=== PATIENT | female | born 1980 | race African-American/Black ===

== ENCOUNTER 2016-09-06 18:39 | Emergency (ER) | payer MEDICAID, OTHER ==
[~2016-09-06] VITALS: Ht 165.1 cm; Wt 86.0 kg
[~2016-09-06 18:39] MED LIST: MACR100C2 PO; ONDA4TAB7 SL; PREN29TA PO
[2016-09-06 18:40] VITALS: BP 133/82; PULSE 115; RESP 20; TEMP 98.7; O2SAT 96
[2016-09-06] MEDS ORDERED: RESP: ALBUTEROL 2.5 MG/3 ML NEB (SCH) INH ONE (23:15)
--- NOTE | 2016-09-06 23:45 | RADRPT ---
EXAM DATE/TIME: 09/06/2016 23:36 [facility] COMPARISON: No previous studies available for comparison. INDICATIONS : Short of breath and congestion for two days. MEDICAL HISTORY : None. SURGICAL HISTORY : None. ENCOUNTER: Initial ACUITY: 2 days PAIN SCORE: 2/10 LOCATION: Bilateral chest FINDINGS: Minimal streaky infiltrate at the medial lung bases identified. Cardiomegaly. Osseous structures are intact. CONCLUSION: Minimal basilar airspace disease suspected. Ronnie Jc MD on September 06, 2016 at 23:43 Board Certified Radiologist. This report was verified electronically.
[2016-09-07 00:12] LABS: AUTOMATED NEUTROPHIL # 8.5 TH/MM3 (1.8-7.7); BASOPHIL % 0.3 % (0.0-2.0); EOSINOPHIL # 0.3 TH/MM3 (0-0.4); EOSINOPHIL % 2.5 % (0.0-4.0); HEMATOCRIT 35.1 % (35.0-46.0); HEMO FLAGS DIFF FINAL; LYMPH % 10.9 % (9.0-44.0); LYMPHOCYTE # 1.2 TH/MM3 (1.0-4.8); MEAN CELL VOLUME 89.2 FL (80.0-100.0); MEAN CORPUSCULAR HEMOGLOBIN 30.9 PG (27.0-34.0); MEAN CORPUSCULAR HGB CONC 34.6 % (32.0-36.0); MONO % 8.1 % (0.0-8.0); NEUT % 78.2 % (16.0-70.0); PLATELET COUNT 287 TH/MM3 (150-450); RED BLOOD COUNT 3.93 MIL/MM3 (4.00-5.30); RED CELL DISTRIBUTION WIDTH 14.4 % (11.6-17.2); WHITE BLOOD COUNT 10.9 TH/MM3 (4.0-11.0)
[2016-09-07 00:25] LABS: ALT (GPT) 16 U/L (10-53); ANION GAP 12 MEQ/L (5-15); AST (GOT) 15 U/L (15-37); BLOOD UREA NITROGEN 3 MG/DL (7-18); CHLORIDE 104 MEQ/L (98-107); GLOMERULAR FILTRATION RATE 144 ML/MIN (>89); POTASSIUM 3.5 MEQ/L (3.5-5.1); SODIUM (NA) 138 MEQ/L (136-145)
[2016-09-07 00:29] LABS: ALKALINE PHOSPHATASE 64 U/L (45-117); TOTAL BILIRUBIN ADULT 0.4 MG/DL (0.2-1.0)
--- NOTE | 2016-09-07 00:31 | RADRPT ---
EXAM DATE/TIME: 09/06/2016 23:57 [facility] COMPARISON: No previous studies available for comparison. INDICATIONS : Bilateral leg swelling and cramping. Shortness of breath. MEDICAL HISTORY : . Ovarian cysts. Bilateral leg swelling and cramping. SOB. SURGICAL HISTORY : None. ENCOUNTER: Initial ACUITY: 1 day PAIN SCORE: 0/10 LOCATION: Bilateral leg. TECHNIQUE: Venous ultrasound of the left and right leg was performed from the inguinal ligament to the proximal calf. Real-time, color Doppler and spectral tracing, compression and augmentation techniques were us ed. FINDINGS: RIGHT LEG: There is normal compressibility of the deep venous system from the inguinal region to the proximal ca lf. No echogenic clot is seen in the lumen of the common femoral, femoral, popliteal, and posterior tibial veins. There is a normal response of the venous system to proximal and distal augmentation an d respiration. LEFT LEG: There is normal compressibility of the deep venous system from the inguinal region to the proximal ca lf. No echogenic clot is seen in the lumen of the common femoral, femoral, popliteal, and posterior tibial veins. There is a normal response of the venous system to proximal and distal augmentation an d respiration. CONCLUSION: Normal examination. Ronnie Jc MD on September 07, 2016 at 0:29 Board Certified Radiologist. This report was verified electronically.
[2016-09-07 01:08] VITALS: PULSE 113
[2016-09-07] MEDS ORDERED: AZIT250T3 PO (01:08)
--- NOTE | 2016-09-07 01:10 | PD ---
HPI Chief Complaint: Cold / Flu Symptoms Time Seen by Provider: 22:50 Travel History International Travel<30 days: No Contact w/Intl Traveler<30days: No Traveled to known affect area: No History of Present Illness HPI The patient is 36 years old. She is a 5 para 3 with 1 prior miscarriage known to be 6 months . She follows with bindery machine setter Cheyenne Jackman. Ultrasounds have been normal. She has had a cough for about a day and a half. She reports occasional episodes of severe coughing followed by abdominal pain. She reports some shortness of breath with exertion as well as dyspnea at rest. She's had severe coughing spells with posttussive emesis. She 's had yellow mucus production. Subjective fever is reported. Patient is otherwise healthy. No vaginal bleeding. No vaginal discharge. No urinary complaint. PFSH Past Medical History Medical History: Denies Significant Hx Tetanus Vaccination: > 5 Years Influenza Vaccination: No ?: LMP: 03/25/16 : 5 Para: 3 Miscarriage: 1 : 0 Ovarian Cysts: Yes Past Surgical History Surgical History: No Previous Surgery Social History Alcohol Use: No Tobacco Use: No Substance Use: No Allergies-Medications (Allergen,Severity, Reaction): Coded Allergies: No Known Allergies (Unverified , 09/06/16) Reported Meds & Prescriptions Reported Meds & Active Scripts Active Azithromycin 250 Mg Tab 250 Mg PO DAILY 4 Days Review of Systems Except as stated in HPI: all other systems reviewed are Neg General / Constitutional: Positive: Fever Respiratory: Positive: Cough, Shortness of Breath Physical Exam Narrative GENERAL: 36-year-old female pleasant well-nourished well-developed no acute distress SKIN: Warm and dry. HEAD: Atraumatic. Normocephalic. EYES: Pupils equal and round. No scleral icterus. No injection or drainage. ENT: No nasal bleeding or discharge. Mucous membranes pink and moist. NECK: Trachea midline. No JVD. CARDIOVASCULAR: Sinus. Tachycardia. RESPIRATORY: No accessory muscle use. Clear to auscultation. Breath sounds equal bilaterally. GASTROINTESTINAL: Abdomen soft, non-tender, nondistended. Hepatic and splenic margins not palpable. MUSCULOSKELETAL: No obvious deformities. No clubbing. No cyanosis. No edema. NEUROLOGICAL: Awake and alert. No obvious cranial nerve deficits. Motor grossly within normal limits. Normal speech. PSYCHIATRIC: Appropriate mood and affect; insight and judgment normal. Data Data Last Documented VS Vital Signs Date Time Temp Pulse Resp B/P Pulse Ox O2 Delivery O2 Flow Rate FiO2 09/07/16 01:37 113 18 155/71 100 09/06/16 22:51 Room Air 09/06/16 18:40 98.7 Vital signs reviewed Orders Complete Blood Count With Diff (09/06/16 23:14) Troponin I (09/06/16 23:14) Influenzae A/B Antigen (09/06/16 23:14) Chest, Single Ap (09/06/16 23:14) Albuterol Neb (Albuterol Neb) (09/06/16 23:15) Us Leg Venous Doppler Bilat (09/06/16 ) Comprehensive Metabolic Panel (09/06/16 23:14) Lipase (09/06/16 23:14) Lung Scan - Perfusion (09/07/16 23:14) Azithromycin (Zithromax) (09/07/16 01:15) Labs Laboratory Tests Test 09/06/16 23:59 White Blood Count 10.9 TH/MM3 Red Blood Count 3.93 MIL/MM3 Hemoglobin 12.1 GM/DL Hematocrit 35.1 % Mean Corpuscular Volume 89.2 FL Mean Corpuscular Hemoglobin 30.9 PG Mean Corpuscular Hemoglobin 34.6 % Concent Red Cell Distribution Width 14.4 % Platelet Count 287 TH/MM3 Mean Platelet Volume 10.0 FL Neutrophils (%) (Auto) 78.2 % Lymphocytes (%) (Auto) 10.9 % Monocytes (%) (Auto) 8.1 % Eosinophils (%) (Auto) 2.5 % Basophils (%) (Auto) 0.3 % Neutrophils # (Auto) 8.5 TH/MM3 Lymphocytes # (Auto) 1.2 TH/MM3 Monocytes # (Auto) 0.9 TH/MM3 Eosinophils # (Auto) 0.3 TH/MM3 Basophils # (Auto) 0.0 TH/MM3 CBC Comment DIFF FINAL Differential Comment Sodium Level 138 MEQ/L Potassium Level 3.5 MEQ/L Chloride Level 104 MEQ/L Carbon Dioxide Level 22.0 MEQ/L Anion Gap 12 MEQ/L Blood Urea Nitrogen 3 MG/DL Creatinine 0.57 MG/DL Estimat Glomerular Filtration 144 ML/MIN Rate Random Glucose 72 MG/DL Calcium Level 8.9 MG/DL Total Bilirubin 0.4 MG/DL Aspartate Amino Transf 15 U/L (AST/SGOT) Alanine Aminotransferase 16 U/L (ALT/SGPT) Alkaline Phosphatase 64 U/L Troponin I LESS THAN 0.02 NG/ML Total Protein 7.2 GM/DL Albumin 2.7 GM/DL Lipase 78 U/L MDM Medical Decision Making Medical Screen Exam Complete: Yes Emergency Medical Condition: Yes Medical Record Reviewed: Yes Differential Diagnosis Pneumonia, PE, asthma, hepatobiliary disease, vaginal bleeding, complications second trimester Narrative Course CBC & BMP Diagram 09/06/16 23:59 Troponin less than 0.02 Chest x-ray shows possible left base disease VQ scan is normal Blood type AB+ Obstetrics to perform heart tones Patient appears to have bibasal pna. Azithromycin prescribed. Return precautions discussed. Diagnosis Primary Impression: Intrauterine Additional Impression: Pneumonia Qualified Code: J18.1 - Pneumonia of left lower lobe due to infectious organism Referrals: [facility] 2 days Additional Instructions: You have a choice when it comes to health care, and we are glad that you chose [facility]. Hopefully, we have met your expectations on today's visit. You are welcome to return to [facility] at any time, as we are committed to meeting the health care needs of our community. Med/Other Pt SpecificInfo: Prescription(s) given Scripts Azithromycin 250 Mg [id number] Mg PO DAILY 4 Days Ref 0 Prov:Pelon Barajas MD 09/07/16 Disposition: DISCHARGE HOME Condition: Stable Pelon Barajas MD Sep 07, 2016 01:10
[2016-09-07] MEDS ORDERED: AZITHROMYCIN 250 MG TAB PO ONE (01:15)
[2016-09-07 01:37] VITALS: BP 155/71; PULSE 113; RESP 18; O2SAT 100
--- NOTE | 2016-09-07 02:09 | RADRPT ---
EXAM DATE/TIME: 09/07/2016 01:58 [facility] COMPARISON: US LEG BILATERAL VENOUS DOPPLER, September 06, 2016, 23:57. CHEST SINGLE AP, September 06, 2016, 23:36. INDICATIONS : Shortness of breath for one day. DOSE: 1.0 mCi Tc99m Labeled MAA IV MEDICAL HISTORY : . SURGICAL HISTORY : None. ENCOUNTER: Initial ACUITY: 1 day PAIN SCALE: 0/10 LOCATION: Bilateral chest TECHNIQUE: The patient was injected with MAA, and eight-view perfusion scan was performed. FINDINGS: PERFUSION: There is a homogenous pattern of radiotracer uptake throughout both lungs. CONCLUSION: Normal examination. Ronnie Jc MD on September 07, 2016 at 2:08 Board Certified Radiologist. This report was verified electronically.
[2016-09-07 03:28] VITALS: BP 134/67; PULSE 105; RESP 18; TEMP 98.4; O2SAT 100
== END 2016-09-07 03:42 | disposition home or self-care (01) ==
LOC: NEPE 18:39
DX: O99.513 Diseases of the respiratory system complicating pregnancy, third trimester (principal); Z3A.00 Weeks of gestation of pregnancy not specified
CPT/HCPCS: 71010; 78580; 80053; 83690; 84484; 85025; 87804; 93970; 94664; 99284; A9540; J7613

== ENCOUNTER 2016-11-01 14:45 | Inpatient (IN) | payer MEDICAID ==
[~2016-11-01] VITALS: Ht 165.1 cm; Wt 87.5 kg
[2016-11-01] VITALS (35 sets, daily range): BP systolic 108–144; BP diastolic 40–87; PULSE 44–97; RESP 16–22; TEMP 98.4–98.7; O2SAT 98–100
[~2016-11-01 14:45] MED LIST changes: +AZIT250T3 PO; -MACR100C2 PO; -ONDA4TAB7 SL; -PREN29TA PO
--- NOTE | 2016-11-01 15:35 | PD ---
Physical Exam Date Seen by Provider: November 01, 2016 Time Seen by Provider: 15:30 Narrative 36 y/o female with C/O KEBEDE for 2-3 days with worsening today. Pain 8/10 today. No Hx. Migraine. Patient 31 weeks . No abdominal pain and feels movement. Denies Fever, Chills, Sore throat or Cough. No Nausea or vomiting. V/S stable Patient sent to OB Floor. Data Data Last Documented VS Vital Signs Date Time Temp Pulse Resp B/P Pulse Ox O2 Delivery O2 Flow Rate FiO2 11/01/16 14:47 98.6 75 16 133/78 100 Room Air [facility] Medical Record Reviewed: Yes Supervised Visit with NALLELY: Yes Condition: Stable Addy Garcia November 01, 2016 15:35
[2016-11-01] MEDS ORDERED: ACETAMINOPHEN 325 MG TAB PO ONE (16:45)
[2016-11-01 17:35] LABS: BACTERIA, URINE FEW /hpf; BLOOD, URINE NEG (NEG); COMMENT (UR) CULT NOT INDICATED; CULTURE IF INDICATED CULT NOT INDICATED; GLUCOSE,URINE NEG (NEG); KETONE, URINE TRACE mg/dL (NEG); MUCUS URINE FEW /lpf (OCC); NITRITE,URINE NEG (NEG); SQUAMOUS EPITHELIAL CELL URINE 3 /hpf (0-5); URINE COLOR YELLOW (YELLW/STRAW)
--- NOTE | 2016-11-01 18:39 | PD ---
HPI Chief Complaint headache and abdominal pain Date Seen: November 01, 2016 Travel History International Travel<30 Days: No Contact w/Intl Traveler<30Days: No Known Affected Area: No History of Present Illness HPI This is a 36y/o at 31w5d who presented to the [facility] with reports of a recent onset of headache and abdominal pain. She was noted to have an elevated respiratory rate and thus was placed on a pulse ox. Her pulse was irregular with EKG significant for PVCs. Pt denies vaginal bleeding or leakage of fluid with reports of active movements. care with Cheyenne Redd, care complicated by: 1. AMA 2. h/o pneumonia during this Para: 3 : 5 Miscarriage: 1 History Past Medical History Medical History: Denies Significant Hx Past Surgical History Surgical History: No Previous Surgery Family History Narrative Family History Pt's mother with cardiac issues, needs 2 valve replacement Family History: Social History Alcohol Use: No Tobacco Use: No Substance Abuse: No Allergies-Medications (Allergen,Severity, Reaction): Coded Allergies: No Known Allergies (Unverified , 11/01/16) Home Meds Active Scripts Azithromycin 250 Mg [id number] Mg PO DAILY 4 Days Ref 0 Prov:Pelon Barajas MD 09/07/16 Review of Systems Except as stated in HPI: all other systems reviewed are Neg Physical Exam Vital Signs Date Time Temp Pulse Resp B/P Pulse Ox O2 Delivery O2 Flow Rate FiO2 11/01/16 18:24 20 11/01/16 18:19 83 11/01/16 18:10 64 11/01/16 18:05 59 11/01/16 18:01 51 142/69 11/01/16 18:00 48 11/01/16 17:52 20 11/01/16 17:50 70 11/01/16 17:46 86 126/72 11/01/16 17:45 44 11/01/16 17:42 59 142/86 11/01/16 17:40 47 11/01/16 17:31 68 139/40 11/01/16 17:30 48 11/01/16 17:21 20 11/01/16 17:16 22 11/01/16 17:15 85 11/01/16 17:15 64 144/87 11/01/16 17:01 50 126/66 11/01/16 16:46 80 123/70 11/01/16 16:33 50 108/84 11/01/16 14:47 98.6 75 16 133/78 100 Room Air Narrative GENERAL: Well-nourished, well-developed patient. SKIN: Warm and dry. HEAD: Normocephalic and atraumatic. EYES: No scleral icterus. No injection or drainage. ENT: No nasal drainage noted. Mucous membranes pink. Airway patent. NECK: Supple, trachea midline. No JVD. CARDIOVASCULAR: Regular rate and rhythm without murmurs, gallops, or rubs. RESPIRATORY: Breath sounds equal bilaterally. No accessory muscle use. BREASTS: Bilateral exam showed no masses , no retractions, no nipple discharge. ABDOMEN/GI: Abdomen soft, non-tender, bowel sounds present, no rebound, no guarding Fundal Height: 31w GENITOURINARY: deferred FHT's: Category: 1 Contractions: None EXTREMITIES: No cyanosis or edema. BACK: Nontender without obvious deformity. No CVA tenderness. NEUROLOGICAL: Awake and alert. Motor and sensory grossly within normal limits. Five out of 5 muscle strength in all muscle groups. Normal speech. Data Data Vital Signs Reviewed: Yes Orders Vital Signs (Adult) .ON ADMISSION (11/01/16 16:32) ^ Labor Status (11/01/16 16:32) Urinalysis - C+S If Indicated (11/01/16 16:32) Acetaminophen (Tylenol) (11/01/16 16:45) Electrocardiogram (11/01/16 ) Senior Geologist / Telemetry [email or web address] (11/01/16 18:02) Electrocardiogram (11/01/16 18:06) Ob (2e) Additional Admit Info (11/01/16 18:22) Labs Laboratory Tests Test 11/01/16 16:00 Urine Color YELLOW Urine Turbidity HAZY Urine pH 6.0 Urine Specific [place] 1.019 Urine Protein TRACE Urine Glucose (UA) NEG Urine Ketones TRACE Urine Occult Blood NEG Urine Nitrite NEG Urine Bilirubin NEG Urine Urobilinogen LESS THAN 2.0 Urine Leukocyte Esterase SMALL Urine RBC 2 Urine WBC 4 Urine Squamous Epithelial 3 Cells Urine Bacteria FEW Urine Mucus FEW Microscopic Urinalysis Comment CULT NOT INDICATED MDM Medical Record Reviewed: Yes Interpretation(s) 36y/o at 31w5d with PVCs on EKG. -reassuring status -no evidence of PTL Plan Admit for cardiology workup EKG obtained Cardiology consult in AM Telemetry overnight Diagnosis Diagnosis: Primary Impression: PVC (premature ventricular contraction) Additional Impressions: 31 weeks gestation of Advanced maternal age in multigravida Qualified Code: O09.523 - Advanced maternal age in multigravida, third trimester Condition: Stable Jocelynn Koo MD November 01, 2016 18:39
--- NOTE | 2016-11-01 18:56 | HHI.HP ---
HPI Travel History International Travel<30 Days: No Contact w/Intl Traveler<30Days: No Known Affected Area: No History of Present Illness HPI This is a 36y/o at 31w5d who presented to the [facility] with reports of a recent onset of headache and abdominal pain. She was noted to have an elevated respiratory rate and thus was placed on a pulse ox. Her pulse was irregular with EKG significant for PVCs. Pt denies vaginal bleeding or leakage of fluid with reports of active movements. care with Cheyenne Redd, care complicated by: 1. AMA 2. h/o pneumonia during this Para: 3 : 5 History Past Medical History Medical History: Denies Significant Hx Obstetric History Obstetric History 10/12/98 FT Male 8 1/2 lbs 05/09/99 FT Female 8 1/2 lbs 05/25/07 FT Male 6 1/2 lbs Past Surgical History Surgical History: No Previous Surgery Family History Narrative Family History Pt's mother with cardiac issues, needs 2 valve replacement Family History: Social History Alcohol Use: No Tobacco Use: No Substance Abuse: No Allergies-Medications (Allergen,Severity, Reaction): Coded Allergies: No Known Allergies (Unverified , 11/01/16) Home Meds Active Scripts Azithromycin 250 Mg [id number] Mg PO DAILY 4 Days Ref 0 Prov:Pelon Barajas MD 09/07/16 Review of Systems Except as stated in HPI: all other systems reviewed are Neg Physical Exam Vital Signs Date Time Temp Pulse Resp B/P Pulse Ox O2 Delivery O2 Flow Rate FiO2 11/01/16 18:35 57 11/01/16 18:30 49 11/01/16 18:25 50 11/01/16 18:25 48 130/63 11/01/16 18:24 20 11/01/16 18:19 83 11/01/16 18:10 64 11/01/16 18:05 59 11/01/16 18:01 51 142/69 11/01/16 18:00 48 11/01/16 17:52 20 11/01/16 17:50 70 11/01/16 17:46 86 126/72 11/01/16 17:45 44 11/01/16 17:42 59 142/86 11/01/16 17:40 47 11/01/16 17:31 68 139/40 11/01/16 17:30 48 11/01/16 17:21 20 11/01/16 17:16 22 11/01/16 17:15 85 11/01/16 17:15 64 144/87 11/01/16 17:01 50 126/66 11/01/16 16:46 80 123/70 11/01/16 16:33 50 108/84 11/01/16 14:47 98.6 75 16 133/78 100 Room Air Narrative GENERAL: Well-nourished, well-developed patient. SKIN: Warm and dry. HEAD: Normocephalic and atraumatic. EYES: No scleral icterus. No injection or drainage. ENT: No nasal drainage noted. Mucous membranes pink. Airway patent. NECK: Supple, trachea midline. No JVD. CARDIOVASCULAR: Regular rate and rhythm without murmurs, gallops, or rubs. RESPIRATORY: Breath sounds equal bilaterally. No accessory muscle use. BREASTS: Bilateral exam showed no masses , no retractions, no nipple discharge. ABDOMEN/GI: Abdomen soft, non-tender, bowel sounds present, no rebound, no guarding Fundal Height: 31w GENITOURINARY: deferred FHT's: Category: 1 Contractions: None EXTREMITIES: No cyanosis or edema. BACK: Nontender without obvious deformity. No CVA tenderness. NEUROLOGICAL: Awake and alert. Motor and sensory grossly within normal limits. Five out of 5 muscle strength in all muscle groups. Normal speech. Data Data Vital Signs Reviewed: Yes Orders Vital Signs (Adult) .ON ADMISSION (11/01/16 16:32) ^ Labor Status (11/01/16 16:32) Urinalysis - C+S If Indicated (11/01/16 16:32) Acetaminophen (Tylenol) (11/01/16 16:45) Application Developer / Telemetry [email or web address] (11/01/16 18:02) Electrocardiogram (11/01/16 18:06) Ob (2e) Additional Admit Info (11/01/16 18:22) Labs Laboratory Tests Test 11/01/16 16:00 Urine Color YELLOW Urine Turbidity HAZY Urine pH 6.0 Urine Specific [place] 1.019 Urine Protein TRACE Urine Glucose (UA) NEG Urine Ketones TRACE Urine Occult Blood NEG Urine Nitrite NEG Urine Bilirubin NEG Urine Urobilinogen LESS THAN 2.0 Urine Leukocyte Esterase SMALL Urine RBC 2 Urine WBC 4 Urine Squamous Epithelial 3 Cells Urine Bacteria FEW Urine Mucus FEW Microscopic Urinalysis Comment CULT NOT INDICATED Assessment/Plan Assessment and Plan 36y/o at 31w5d with PVCs on EKG. -reassuring status -no evidence of PTL Plan Admit for cardiology workup EKG obtained Cardiology consult in AM Telemetry overnight Jocelynn Koo MD November 01, 2016 18:56
[2016-11-01] MEDS ORDERED: ACETAMINOPHEN 325 MG TAB PO PRN (19:00)
[2016-11-01] MEDS ORDERED: SODIUM CHLORIDE 0.9% FLUSH 10 ML FLUSH IV FLUSH PRN (19:00)
[2016-11-01] MEDS ORDERED: ZOLPIDEM TARTRATE 5 MG TAB PO PRN (19:00)
[2016-11-01] MEDS: SODIUM CHLORIDE 0.9% FLUSH 10 ML FLUSH IV FLUSH SCH (21:00)
[2016-11-02 00:20] VITALS: BP 122/60; PULSE 69; RESP 20; TEMP 98.4; O2SAT 98
[2016-11-02 05:13] VITALS: BP 140/79; PULSE 50; RESP 18; TEMP 97.7; O2SAT 98
[2016-11-02 08:00] VITALS: BP 128/70; PULSE 70; RESP 20; TEMP 98; O2SAT 97
[2016-11-02] MEDS: SODIUM CHLORIDE 0.9% FLUSH 10 ML FLUSH IV FLUSH SCH (08:43)
--- NOTE | 2016-11-02 08:49 | MB ---
cc: DAVID NUNEZ MD DATE OF CONSULTATION 11/02/2016 REASON FOR CONSULTATION PVCs. HISTORY OF PRESENT ILLNESS Ms. Boo is a 36-year-old female who has unremarkable cardiac history. She is 31 weeks and presented to the emergency room with complaints of a headache. PAST MEDICAL HISTORY - The patient denies any history of hypertension, hyperlipidemia, or diabetes. She does have a history of pneumonia. FAMILY HISTORY Positive for valvular heart disease. SOCIAL HISTORY The patient does not drink or smoke. ALLERGIES No known drug allergies. OUTPATIENT MEDICATIONS Included Zithromax. REVIEW OF SYSTEMS Except as mentioned in the HPI, all 12 systems are negative. PHYSICAL EXAMINATION VITAL SIGNS: On physical examination vital signs are 97.7, 50, 18, 140/79. IN GENERAL: She is an overweight female who is in no apparent distress. NECK: Her neck is free from JVD. LUNGS: The lungs are bilaterally clear to auscultation. CARDIOVASCULAR EXAMINATION: She has a normal S1 and S2. I did not appreciate any murmurs, rubs or gallops. ABDOMEN: Soft. EXTREMITIES Free from edema. TELEMETRY sinus rhythm with occasional PVCs. EKG Normal sinus rhythm with PVCs. IMPRESSIONS PVCs - The patient has had some PVCs. She has been monitored overnight on telemetry and has not had any runs. They appear only occasional on telemetry. At this point basic labs with electrolyte panel will be checked as well as a TSH. Barring any electrolyte disturbances, she can be continued with conservative medical management. I would not give any beta blockers given her and low heart rate into the 50s. Family history of valvular heart disease - Outpatient echocardiogram can be considered by the primary team. DISPOSITION - It is reasonable for the patient to be discharged home pending her labs. I will be available on a p.r.n. basis. Sincerely, David Nunez M.D. JHONY/LIZZY /8:16 AM /8:35 AM
--- NOTE | 2016-11-02 09:14 | PD.OB.ANTE ---
Subjective Interval History Pt seen and examined this morning. No acute events overnight. Pt with HR ranging from 40s-100s. BP stable. Pt reports occasionally feeling light headed when she stands up quickly. Denies current headache, chest pain, SOB. Endorses occasional palpitations. Denies any syncopal episodes. She denies history of cardiac issues, blppd disorders. She has not recently been seen by a doctor. , gestational age 31/6, care is with Cheyenne Jackman. She endorses movement, denies leakage of fluid, vaginal bleeding, abdominal pain, contractions. Objective Vital Signs Vital Signs Date Time Temp Pulse Resp B/P Pulse Ox O2 Delivery O2 Flow Rate FiO2 11/02/16 05:13 97.7 50 18 140/79 98 11/02/16 01:25 Room Air 11/02/16 00:20 98.4 69 20 122/60 98 11/01/16 22:22 97 11/01/16 22:00 98.4 70 20 136/81 98 11/01/16 21:15 20 11/01/16 20:15 63 20 11/01/16 20:10 50 11/01/16 19:15 98.7 11/01/16 19:10 50 11/01/16 18:55 50 11/01/16 18:50 55 11/01/16 18:45 49 11/01/16 18:40 61 11/01/16 18:35 57 11/01/16 18:30 49 11/01/16 18:25 50 11/01/16 18:25 48 130/63 11/01/16 18:24 20 11/01/16 18:19 83 11/01/16 18:10 64 11/01/16 18:05 59 11/01/16 18:01 51 142/69 11/01/16 18:00 48 11/01/16 17:52 20 11/01/16 17:50 70 11/01/16 17:46 86 126/72 11/01/16 17:45 44 11/01/16 17:42 59 142/86 11/01/16 17:40 47 11/01/16 17:31 68 139/40 11/01/16 17:30 48 11/01/16 17:21 20 11/01/16 17:16 22 11/01/16 17:15 85 11/01/16 17:15 64 144/87 11/01/16 17:01 50 126/66 11/01/16 16:46 80 123/70 11/01/16 16:33 50 108/84 11/01/16 14:47 98.6 75 16 133/78 100 Room Air Lab & Micro Results Test 11/01/16 16:00 Urine Color YELLOW Urine Turbidity HAZY Urine pH 6.0 Urine Specific [place] 1.019 Urine Protein TRACE mg/dL Urine Glucose (UA) NEG mg/dL Urine Ketones TRACE mg/dL Urine Occult Blood NEG Urine Nitrite NEG Urine Bilirubin NEG Urine Urobilinogen LESS THAN 2.0 MG/DL Urine Leukocyte Esterase SMALL Urine RBC 2 /hpf Urine WBC 4 /hpf Urine Squamous Epithelial 3 /hpf Cells Urine Bacteria FEW /hpf Urine Mucus FEW /lpf Microscopic Urinalysis Comment CULT NOT INDICATED Physical Exam GENERAL: Well-nourished, well-developed patient. CARDIOVASCULAR: Regular rate and rhythm without murmurs, gallops, or rubs. RESPIRATORY: Breath sounds equal bilaterally. No accessory muscle use. ABDOMEN/GI: Abdomen soft, non-tender, +bowel sounds. Gravid to 31 weeks FHT's: Appreciated with Doppler EXTREMITIES: No cyanosis or edema, non-tender, without signs of DVT. Assessment and Plan Assessment and Plan 36y/o at 31w5d with significant family history for heart disease found to have an abnormal EKG. -Cardiology consulted due to irregular EKG, appreciate recommendations -Positive FHT using Doppler at bedside -Check FHT Q Shift -Consider NST -No evidence of PTL -Telemetry -Continue to monitor vitals -Case management consulted to assist as pt is uninsured Tarik Escobar MD R2 November 02, 2016 09:14 Telemetry overnight Tarik Escobar MD R2 November 02, 2016 09:14
[2016-11-02 09:41] LABS: HEMATOCRIT 32.7 % (35.0-46.0); MEAN CELL VOLUME 88.3 FL (80.0-100.0); MEAN CORPUSCULAR HEMOGLOBIN 28.7 PG (27.0-34.0); MEAN CORPUSCULAR HGB CONC 32.5 % (32.0-36.0); PLATELET COUNT 301 TH/MM3 (150-450); RED BLOOD COUNT 3.71 MIL/MM3 (4.00-5.30); RED CELL DISTRIBUTION WIDTH 14.7 % (11.6-17.2); REVIEW FLAG FINAL; WHITE BLOOD COUNT 8.4 TH/MM3 (4.0-11.0)
[2016-11-02 10:12] LABS: ALKALINE PHOSPHATASE 112 U/L (45-117); ALT (GPT) 10 U/L (10-53); ANION GAP 9 MEQ/L (5-15); AST (GOT) 12 U/L (15-37); BICARBONATE 24.7 MEQ/L (21.0-32.0); BLOOD UREA NITROGEN 3 MG/DL (7-18); CHLORIDE 106 MEQ/L (98-107); GLOMERULAR FILTRATION RATE 164 ML/MIN (>89); MAGNESIUM 1.6 MG/DL (1.5-2.5); POTASSIUM 3.7 MEQ/L (3.5-5.1); SODIUM (NA) 140 MEQ/L (136-145); TOTAL BILIRUBIN ADULT 0.3 MG/DL (0.2-1.0)
--- NOTE | 2016-11-02 14:34 | EKG ---
Date Performed: 11/01/2016 Time Performed: 18:21:38 PTAGE: 36 years EKG: Sinus rhythm WITH FREQUENT VENTRICULAR PREMATURE COMPLEXES POSSIBLE LEFT ATRIAL ENLARGEMENT NONSPECIFIC T-WAVE AB NORMALITY ABNORMAL RHYTHM ECG NO PREVIOUS TRACING DOCTOR: Arthur Bhatia Interpretating Date/Time 11/02/2016 14:33:26
[2016-11-02 16:00] VITALS: BP 119/55; PULSE 93; RESP 20; TEMP 98.4; O2SAT 97
[2016-11-02] MEDS ORDERED: CALNTAB PO (17:16)
--- NOTE | 2016-11-02 17:17 | HHI.DCPOC ---
Discharge Care Plan Diagnosis: (1) PVC (premature ventricular contraction) Goals to Promote Your Health * To prevent worsening of your condition and complications, please continue to eat a well balanced diet and stay well hydrated by drinking plenty of water. * To maintain your health at the optimal level, please follow up with a doctor. Directions to Meet Your Goals Take your medications as prescribed Follow your dietary instruction Follow activity as directed Keep your appointments as scheduled Take your immunizations and boosters as scheduled If your symptoms worsen call your PCP, if no PCP go to Urgent Care Center or Emergency Room Smoking is Dangerous to Your Health. Avoid second hand smoke Call the 24-hour hour crisis hotline for domestic abuse at Alfredo Baldwin MD R1 November 02, 2016 17:17
--- NOTE | 2016-11-02 19:00 | EC ---
Study Study Date:11/02/2016 STUDY CONCLUSIONS SUMMARY LEFT VENTRICLE: The cavity size was normal. Wall thickness was normal. Systolic function was normal. The estimated ejection fraction was in the range of 55% to 60%. Wall motion was normal; there were no regional wall motion abnormalities. If LV function is below 40, please consider prescribing an ACEI or ARB or document rationale for non-use. PROCEDURE DATA STUDY STATUS: Elective. Procedure: Transthoracic echocardiography. Image quality was good. Scanning was performed from the parasternal, apical, and subcostal acoustic windows. Study completion: The patient tolerated the procedure well. Transthoracic echocardiography. M-mode, complete 2D, complete spectral Doppler, and color Doppler. Patient status: Inpatient. CARDIAC ANATOMY LEFT VENTRICLE: The cavity size was normal. Wall thickness was normal. Systolic function was normal. The estimated ejection fraction was in the range of 55% to 60%. Wall motion was normal; there were no regional wall motion abnormalities. AORTIC VALVE: Trileaflet; normal thickness leaflets. Doppler: Transvalvular velocity was within the normal range. There was no stenosis. No regurgitation. Peak gradient: 20mm Hg (S). AORTA: Aortic root: The aortic root was normal in size. MITRAL VALVE: Structurally normal valve. Doppler: Transvalvular velocity was within the normal range. There was no evidence for stenosis. No regurgitation. Peak gradient: 3mm Hg (D). LEFT ATRIUM: The atrium was normal in size. RIGHT VENTRICLE: The cavity size was normal. Wall thickness was normal. PULMONIC VALVE: Doppler: Transvalvular velocity was within the normal range. There was no evidence for stenosis. No regurgitation. TRICUSPID VALVE: Structurally normal valve. Doppler: Transvalvular velocity was within the normal range. No regurgitation. PULMONARY ARTERY: The main pulmonary artery was normal-sized. Systolic pressure was within the normal range. RIGHT ATRIUM: The atrium was normal in size. PERICARDIUM: There was no pericardial effusion. SYSTEMIC VEINS: Inferior vena cava: The vessel was normal in size. BASIC MEASUREMENTS ADULT Normal Left ventricle LV internal dimension, ED, chordal level, *52.4 mm 43-52 PLAX LV internal dimension, ES, chordal level, *40 mm 23-38 PLAX Fractional shortening, chordal level, PLAX *24 % >29 LV posterior wall thickness, ED 7.72 mm IVS/LVPW ratio, ED 1.26 <1.3 Ventricular septum Septal thickness, ED 9.71 mm Aortic valve Leaflet separation 21 mm 15-26 Left atrium Anterior-posterior dimension 34 mm Right ventricle RV internal dimension, ED, PLAX 20 mm 19-38 BASIC MEASUREMENTS ADULT Normal Aortic valve Leaflet separation 21 mm 15-26 Aorta Root diameter, ED 26 mm 20-37 DOPPLER MEASUREMENTS ADULT Normal Main pulmonary artery Pressure, S 29 mm Hg =30 Aortic valve Peak velocity, S 223 cm/s Peak gradient, S 20 mm Hg Mitral valve Peak E-wave velocity 86.9 cm/s Peak A-wave velocity 56.3 cm/s Peak gradient, D 3 mm Hg Peak E/A ratio 1.5 Tricuspid valve Regurgitant peak velocity 243 cm/s Peak RV-RA gradient, S 24 mm Hg Maximal regurgitant velocity 243 cm/s Systemic veins Estimated CVP 5 mm Hg Right ventricle RV pressure, S 29 mm Hg <30 Pulmonic valve Acceleration time 113 ms LEGEND: Mean values are shown as u=mean value. Asterisk (*) tejada values outside specified normal range. Prepared and signed by Penelope Mccabe [id number]
== END 2016-11-02 18:45 | disposition home or self-care (01) | DRG 781 ==
LOC: NED 14:45 → H2EB 18:23 → N04B 21:39
PROVIDERS: ADMIT Obstetrics & Gynecology; ATTEND Obstetrics & Gynecology
DX: O99.413 Diseases of the circulatory system complicating pregnancy, third trimester (principal); O26.893 Other specified pregnancy related conditions, third trimester; I49.3 Ventricular premature depolarization; Z3A.31 31 weeks gestation of pregnancy; R51 Headache
CPT/HCPCS: 80053; 81001; 83735; 84100; 84443; 85027; 93005; 93306; 99285

== ENCOUNTER 2016-11-30 14:13 | Emergency (ER) | payer MEDICAID ==
[~2016-11-30 14:13] MED LIST changes: +CALNTAB PO
[2016-11-30 14:31] VITALS: BP 120/76; PULSE 78
--- NOTE | 2016-11-30 14:44 | PD ---
HPI Chief Complaint Elevated blood pressure. Date Seen: Nov 30, 2016 (Stephanie Martins MD R2) Travel History International Travel<30 Days: No Contact w/Intl Traveler<30Days: No (Stephanie Martins MD R2) History of Present Illness HPI Patient is a 36 year old at 35-6/7 weeks gestation who presents today for elevated blood pressure. She was being seen for routine care at [facility] today when she was found to have elevated BP of 140/100. She denies any headache, abdominal pain, blurry vision or visual changes. She does have some pedal edema today that is new. She denies any vaginal bleeding, vaginal discharge, gush or leaking of fluid, or contractions. Positive movement. (Stephanie Martins MD R2) History Past Medical History Medical History: Denies Significant Hx (Stephanie Martins MD R2) Obstetric History Obstetric History x 3 at full term 1 spontaneous at 12 weeks gestation (Stephanie Martins MD R2) Past Surgical History Surgical History: No Previous Surgery (Stephanie Martins MD R2) Family History Family History: Negative (Stephanie Martins MD R2) Social History Alcohol Use: No Tobacco Use: No Substance Abuse: No (Stephanie Martins MD R2) Allergies-Medications (Allergen,Severity, Reaction): Coded Allergies: No Known Allergies (Unverified , 11/01/16) Home Meds Active Scripts Ferrous Sulfate DR 324 Mg [id number] Mg PO TID #90 TAB Ref 0 Prov:Stephanie Martins MD R2 11/30/16 Vitamin (Calna)1 Tab Tab1 Tab PO DAILY #30 Ref 11 Prov:Alfredo Baldwin MD R1 11/02/16 Azithromycin 250 Mg [id number] Mg PO DAILY 4 Days Ref 0 Prov:Pelon Barajas MD 09/07/16 Review of Systems Except as stated in HPI: all other systems reviewed are Neg General / Constitutional: No: Fever, Chills Eyes: No: Blurred Vision, Visual changes HENT: No: Headaches Cardiovascular: No: Chest Pain or Discomfort, Palpitations Respiratory: No: Short of Breath Gastrointestinal: No: Abdominal Pain Genitourinary: Pelvic Pain, No: Dysuria, Discharge, Vaginal Bleeding Musculoskeletal: Edema Psychiatric: No: Substance Abuse (Stephanie Martins MD R2) Physical Exam Narrative GENERAL: Well-nourished, well-developed patient. SKIN: Warm and dry. HEAD: Normocephalic and atraumatic. EYES: No scleral icterus. No injection or drainage. ENT: No nasal drainage noted. Mucous membranes pink. Airway patent. NECK: Supple, trachea midline. No JVD. CARDIOVASCULAR: Regular rate and rhythm without murmurs, gallops, or rubs. RESPIRATORY: Breath sounds equal bilaterally. No accessory muscle use. ABDOMEN/GI: Abdomen soft, non-tender, bowel sounds present, no rebound, no guarding Gravid to 36 weeks size GENITOURINARY: Membranes: intact Uterine Contractions: none FHT's: Category: I Baseline: 145 Reactive: + Variability: moderate Decels: none EXTREMITIES: No cyanosis or edema. BACK: Nontender without obvious deformity. No CVA tenderness. NEUROLOGICAL: Awake and alert. Motor and sensory grossly within normal limits. Normal speech. (Stephanie Martins MD R2) Data Data Vital Signs Reviewed: Yes (Stephanie Martins MD R2) MDM Medical Record Reviewed: Yes Narrative Course / MDM 36 at 35-6/7 weeks gestation. 1. IUP- Category I tracing, reassuring. 2. Elevated BP- 140/100 in outpatient office, BP's here are 120/76 then 141/83. Will obtain CBC, CMP, uric acid, LDH, and UA for further evaluation. Patient will need 24 hour urine protein. eb Jacobs Addendum: UA, uric acid, LDH and CMP wnl CBC significant for anemia with hgb 10.5- will treat with ferrous sulfate 325mg PO TID Order given for 24 hour urine protein as outpatient Follow-up with [facility] Jackman (Stephanie Martins MD R2) Diagnosis Diagnosis: Primary Impression: Elevated blood pressure affecting in third trimester, antepartum Additional Impression: 35 weeks gestation of Disposition: DISCHARGE HOME Condition: Stable Scripts Ferrous Sulfate DR 324 Mg [id number] Mg PO TID #90 TAB Ref 0 Prov:Stephanie Martins MD R2 11/30/16 Patient Instructions: 24 Hour Urine Collection (GEN), General Instructions Attestation Patient seen at the bedside. Agree with resident's assessment/plan. Pre Eclampsia precautions given. (Stella Jacobs MD) Stephanie Martins MD R2 Nov 30, 2016 14:43 Stella Jacobs MD Nov 30, 2016 17:23
[2016-11-30 14:45] VITALS: RESP 18
[2016-11-30 14:51] VITALS: BP 141/83; PULSE 95
[2016-11-30 15:01] VITALS: BP 134/87; PULSE 78
[2016-11-30 15:55] LABS: HEMATOCRIT 32.4 % (35.0-46.0); MEAN CELL VOLUME 87.4 FL (80.0-100.0); MEAN CORPUSCULAR HEMOGLOBIN 28.3 PG (27.0-34.0); MEAN CORPUSCULAR HGB CONC 32.4 % (32.0-36.0); PLATELET COUNT 285 TH/MM3 (150-450); RED CELL DISTRIBUTION WIDTH 14.9 % (11.6-17.2); REVIEW FLAG FINAL; WHITE BLOOD COUNT 7.7 TH/MM3 (4.0-11.0)
[2016-11-30 16:28] LABS: BACTERIA, URINE RARE /hpf; BLOOD, URINE NEG (NEG); GLUCOSE,URINE NEG (NEG); KETONE, URINE 10 mg/dL (NEG); MUCUS URINE FEW /lpf (OCC); NITRITE,URINE NEG (NEG); SQUAMOUS EPITHELIAL CELL URINE 4 /hpf (0-5); URINE COLOR YELLOW (YELLW/STRAW)
[2016-11-30 16:28] LABS: ALT (GPT) 11 U/L (10-53); ANION GAP 9 MEQ/L (5-15); AST (GOT) 11 U/L (15-37); BICARBONATE 22.6 MEQ/L (21.0-32.0); BLOOD UREA NITROGEN 4 MG/DL (7-18); CHLORIDE 108 MEQ/L (98-107); GLOMERULAR FILTRATION RATE 139 ML/MIN (>89); LDH SERUM 158 U/L (84-246); POTASSIUM 4.3 MEQ/L (3.5-5.1); SODIUM (NA) 140 MEQ/L (136-145); URIC ACID 4.1 MG/DL (2.6-6.0)
[2016-11-30 16:30] LABS: ALKALINE PHOSPHATASE 168 U/L (45-117); TOTAL BILIRUBIN ADULT 0.3 MG/DL (0.2-1.0)
[2016-11-30 16:31] LABS: COMMENT (UR) CULT NOT INDICATED; CULTURE IF INDICATED CULT NOT INDICATED
[2016-11-30] MEDS ORDERED: FERR324T4 PO (16:35)
== END 2016-11-30 17:17 | disposition home or self-care (01) ==
LOC: HOBED 14:13
DX: O26.893 Other specified pregnancy related conditions, third trimester (principal); R03.0 Elevated blood-pressure reading, without diagnosis of hypertension; Z3A.35 35 weeks gestation of pregnancy
CPT/HCPCS: 59025; 80053; 81001; 83615; 84550; 85027

== ENCOUNTER → 2016-12-02 | Outpatient (CLI) | payer SELFPAY ==
[~2016-12-02] MED LIST changes: +FERR324T4 PO; +IBUP-232 PO
[2016-12-02 13:56] LABS: URINE TOTAL PROTEIN TIMED 8.9 MG/DL
== END ==
LOC: CLAB 13:06
PROVIDERS: ATTEND Family Medicine
DX: O13.3 Gestational [pregnancy-induced] hypertension without significant proteinuria, third trimester (principal)
CPT/HCPCS: 84157

== ENCOUNTER 2016-12-19 01:43 | Inpatient (IN) | payer MEDICAID ==
[2016-12-19] VITALS (53 sets, daily range): BP systolic 119–207; BP diastolic 66–162; PULSE 77–130; RESP 18–22; TEMP 97.7–98.9
[~2016-12-19] VITALS: Ht 165.1 cm; Wt 89.4 kg
[~2016-12-19 01:43] MED LIST changes: -IBUP-232 PO
[2016-12-19] MEDS ORDERED: LACTATED RINGER'S 1000 ML INJ 1,000 ML IV SCH (02:04)
[2016-12-19] MEDS ORDERED: LACTATED RINGER'S 1000 ML INJ 1,000 ML IV PRN (02:04)
[2016-12-19] MEDS ORDERED: PENICILLIN G POTASSIUM INJ 5,000,000 UNITS in SODIUM CHLORIDE 0.9% INJ 100 ML IV ONE (02:15)
[2016-12-19] MEDS ORDERED: SODIUM CHLORID 0.9% 500 ML INJ 500 ML IV PRN (02:15)
[2016-12-19] MEDS ORDERED: LIDOCAINE HCL 1% 50 ML VIAL I-DERMAL PRN (02:15)
[2016-12-19] MEDS ORDERED: MINERAL OIL 10 ML VIAL TOPICAL PRN (02:15)
[2016-12-19] MEDS ORDERED: LIDOCAINE HCL 1% 50 ML VIAL INFIL PRN (02:15)
[2016-12-19] MEDS ORDERED: NIFEdipine 10 MG CAP PO PRN ×6 (02:15→04:15)
[2016-12-19] MEDS ORDERED: OXYTOCIN 30 UNITS-500ML PREMIX 500 ML IV ONE (02:15)
[2016-12-19] MEDS ORDERED: CITRIC ACID-SODIUM CITRATE LIQ 30 ML UDC PO SCH (02:15)
[2016-12-19] MEDS ORDERED: ONDANSETRON HCL 4 MG/2 ML VIAL IV PRN (02:15)
[2016-12-19] MEDS ORDERED: MAGNESIUM SULFATE 40 GM PREMIX 1,000 ML IV SCH (02:19)
--- NOTE | 2016-12-19 02:21 | HHI.HP ---
History & Physical H&P Patient Name: Arabella Boo Unit Number: [id number] Date of : 1980 Patient Status: Registered Emergency Room Attending Doctor: Jason Lafleur MD HPI HPI Chief Complaint Contractions Date Seen: Dec 19, 2016 Time Seen: 02:00 Travel History International Travel<30 Days: No Contact w/Intl Traveler<30Days: No Known Affected Area: No History of Present Illness HPI 36-year-old 5 para 3 AB 1 at 38+ weeks gestation with an EDC of December 29. She presents today with contractions that have been getting progressively stronger throughout the evening. She has had some spotting. No leakage of fluid. She denies headache, visual changes or abdominal pain other than the contractions. No significant change in her swelling. Para: 3 : 5 Miscarriage: 1 History (Limited) History Past Medical History Narrative Medical Pneumonia this Obstetric History Obstetric History 3 prior vaginal deliveries were uncomplicated 1 spontaneous AB She receives care with Cheyenne Jackman. She is GBS positive. She was evaluated for elevated blood pressures 2 weeks ago. Past Surgical History Narrative Surgical None Surgical History: No Previous Surgery Family History Family History: Negative Social History Alcohol Use: No Tobacco Use: No Substance Abuse: No Allergies-Medications Allergies-Medications (Allergen,Severity, Reaction): Coded Allergies: No Known Allergies (Unverified , 11/01/16) Home Meds Active Scripts Ferrous Sulfate DR 324 Mg [id number] Mg PO TID #90 TAB Ref 0 Prov:Stephanie Martins MD R2 11/30/16 Vitamin (Calna)1 Tab Tab1 Tab PO DAILY #30 Ref 11 Prov:Alfredo Baldwin MD R1 11/02/16 Azithromycin 250 Mg [id number] Mg PO DAILY 4 Days Ref 0 Prov:Pelon Barajas MD 09/07/16 ROS Review of Systems Except as stated in HPI: all other systems reviewed are Neg Physical Exam Physical Exam Narrative GENERAL: Well-nourished, well-developed patient. SKIN: Warm and dry. HEAD: Normocephalic and atraumatic. EYES: No scleral icterus. No injection or drainage. ENT: No nasal drainage noted. Mucous membranes pink. Airway patent. NECK: Supple, trachea midline. No JVD. CARDIOVASCULAR: Regular rate and rhythm without murmurs, gallops, or rubs. RESPIRATORY: Breath sounds equal bilaterally. No accessory muscle use. ABDOMEN/GI: Abdomen soft, non-tender, bowel sounds present, no rebound, no guarding Gravid to [-] weeks size Fundal Height: [-] GENITOURINARY: External Genitalia: intact and normal in appearance BUS glands: [-Negative] Cervix: [] Dilatation: [5-6-] Effacement: [-100] Station: [-1-] Presentation: [-Vertex] Membranes: [intact ] Uterine Contractions: [-Every 4] FHT's: Category: [1-] Baseline: [-] Reactive: [-] Variability: [-] Decels: [-] EXTREMITIES: No cyanosis or edema. BACK: Nontender without obvious deformity. No CVA tenderness. NEUROLOGICAL: Awake and alert. Motor and sensory grossly within normal limits. Five out of 5 muscle strength in all muscle groups. Normal speech. Data Data Data Vital Signs Reviewed: Yes Orders Admit To Inpatient (12/19/16 ) Vital Signs (Adult) .Per protocol (12/19/16 02:04) Activity Oob Ad Sue (12/19/16 02:04) Heart (12/19/16 02:04) Amnioinfusion (12/19/16 02:04) Urinary Catheter Management .ONCE (12/19/16 02:04) Lactated Ringer's 1000 Ml Inj (Lr 1000 M (12/19/16 02:04) Lactated Ringer's 1000 Ml Inj (Lr 1000 M (12/19/16 02:04) Sodium Chlorid 0.9% 500 Ml Inj (Ns 500 M (12/19/16 02:15) Sodium Chlor 0.9% 1000 Ml Inj (Ns 1000 M (12/19/16 02:24) Lidocaine 1% Inj (50 Ml) (Xylocaine 1% I (12/19/16 02:15) Citric Acid-Sodium Citrate Liq (Bicitra (12/19/16 02:15) Ondansetron Inj (Zofran Inj) (12/19/16 02:15) Fentanyl Inj (Fentanyl Inj) (12/19/16 02:15) Fentanyl Inj (Fentanyl Inj) (12/19/16 02:15) Penicillin G Potassium Inj (Pfizerpen-G (12/19/16 02:15) Penicillin G Potassium Inj (Pfizerpen-G (12/19/16 06:15) Complete Blood Count With Diff (12/19/16 02:04) Hold Clot (12/19/16 02:04) Abo/Rh Blood Type (12/19/16 02:04) Resp Oxygen Non Rebreathe Mask (12/19/16 ) ^ Epidural / Intrathecal Infus (12/19/16 02:04) Oxytocin 30 Units-500ml Premix (Pitocin (12/19/16 02:15) Lidocaine 1% Inj (50 Ml) (Xylocaine 1% I (12/19/16 02:15) Light Mineral Oil (Muri-Lube Oil) (12/19/16 02:15) Inpatient Certification (12/19/16 ) Nifedipine (Procardia) (12/19/16 02:15) Nifedipine (Procardia) (12/19/16 02:30) Nifedipine (Procardia) (12/19/16 03:00) Comprehensive Metabolic Panel (12/19/16 02:07) Ob (2e) Additional Admit Info (12/19/16 02:07) MDM MDM Medical Record Reviewed: Yes Narrative Course / MDM Assessment: 36-year-old female at 38+ weeks gestation in active labor with severe range blood pressure elevation, positive group B strep Plan: Admit for labor management, antihypertensive protocol initiated, magnesium sulfate seizure prophylaxis, GBS prophylaxis Jason Lafleur MD Dec 19, 2016 02:11 Jason Lafleur MD Dec 19, 2016 02:21
[2016-12-19] MEDS ORDERED: SODIUM CHLOR 0.9% 1000 ML INJ 1,000 ML IV PRN (02:24)
[2016-12-19] MEDS ORDERED: MAGNESIUM SULFATE 4 GM PREMIX 100 ML IV ONE (02:30)
[2016-12-19 02:49] LABS: AUTOMATED NEUTROPHIL # 5.4 TH/MM3 (1.8-7.7); BASOPHIL # 0.1 TH/MM3 (0-0.2); BASOPHIL % 0.8 % (0.0-2.0); EOSINOPHIL # 0.1 TH/MM3 (0-0.4); EOSINOPHIL % 1.4 % (0.0-4.0); HEMATOCRIT 35.5 % (35.0-46.0); HEMO FLAGS DIFF FINAL; LYMPHOCYTE # 2.3 TH/MM3 (1.0-4.8); MEAN CELL VOLUME 87.5 FL (80.0-100.0); MEAN CORPUSCULAR HEMOGLOBIN 28.1 PG (27.0-34.0); MEAN CORPUSCULAR HGB CONC 32.1 % (32.0-36.0); MONO % 10.2 % (0.0-8.0); NEUT % 61.6 % (16.0-70.0); PLATELET COUNT 329 TH/MM3 (150-450); RED BLOOD COUNT 4.05 MIL/MM3 (4.00-5.30); RED CELL DISTRIBUTION WIDTH 15.7 % (11.6-17.2); WHITE BLOOD COUNT 8.8 TH/MM3 (4.0-11.0)
[2016-12-19 03:09] LABS: ALKALINE PHOSPHATASE 218 U/L (45-117); TOTAL BILIRUBIN ADULT 0.3 MG/DL (0.2-1.0)
[2016-12-19 03:16] LABS: ALT (GPT) 10 U/L (10-53); ANION GAP 6 MEQ/L (5-15); AST (GOT) 15 U/L (15-37); BICARBONATE 24.2 MEQ/L (21.0-32.0); BLOOD UREA NITROGEN 6 MG/DL (7-18); CHLORIDE 108 MEQ/L (98-107); GLOMERULAR FILTRATION RATE 136 ML/MIN (>89); POTASSIUM 4.2 MEQ/L (3.5-5.1); SODIUM (NA) 138 MEQ/L (136-145)
[2016-12-19] MEDS ORDERED: WITCH HAZEL 50%/GLYCERIN 12.5% 40 PAD JAR TOPICAL PRN (03:30)
[2016-12-19] MEDS ORDERED: ONDANSETRON ODT 4 MG TAB PO PRN (03:30)
[2016-12-19] MEDS ORDERED: ALUMINUM/MAGNESIUM/SIMETH 30 ML CUP PO PRN (03:30)
[2016-12-19] MEDS ORDERED: oxyCODONE/ACETAMINOPHEN 5 MG/325 MG TAB PO PRN (03:30)
[2016-12-19] MEDS ORDERED: SODIUM CHLORIDE 0.9% FLUSH 10 ML FLUSH IV FLUSH PRN (03:30)
[2016-12-19] MEDS ORDERED: ZOLPIDEM TARTRATE 5 MG TAB PO PRN (03:30)
[2016-12-19] MEDS ORDERED: DOCUSATE SODIUM 50 MG/SENNA 8.6 MG TAB PO PRN (03:30)
[2016-12-19] MEDS ORDERED: ACETAMINOPHEN 325 MG TAB PO PRN (03:30)
[2016-12-19] MEDS ORDERED: BENZOCAINE 20% TOPICAL SPRAY 60 ML CAN TOPICAL PRN (03:30)
[2016-12-19] MEDS: MAGNESIUM SULFATE 40 GM PREMIX 1,000 ML IV SCH ×2 (03:34→22:22)
[2016-12-19] MEDS: LACTATED RINGER'S 1000 ML INJ 1,000 ML IV SCH ×2 (03:34→15:17)
--- NOTE | 2016-12-19 03:42 | PD.OB.DELI ---
Anesthesia: None Vaginal Delivery: Normal Presentation: Occiput anterior Nuchal Cord: None Delayed cord clamping (45 sec): Yes : Female One Minute : 9 Five Minute : 9 Weight: 7#8oz Placenta: Spontaneous delivery Laceration: No lacerations Jason Lafleur MD Dec 19, 2016 03:42
[2016-12-19] MEDS ORDERED: SODIUM CHLORIDE 0.9% FLUSH 5 ML FLUSH IV PRN (03:45)
[2016-12-19] MEDS ORDERED: LIDOCAINE 2% JELLY 30 ML TUBE ONE (05:00)
[2016-12-19] MEDS ORDERED: PENICILLIN G POTASSIUM INJ 2,500,000 UNITS in SODIUM CHLORIDE 0.9% INJ 100 ML IV SCH (06:15)
[2016-12-19] MEDS ORDERED: SODIUM CHLORIDE 0.9% FLUSH 10 ML FLUSH IV FLUSH SCH (09:00)
[2016-12-19] MEDS: SODIUM CHLORIDE 0.9% FLUSH 5 ML FLUSH IV SCH ×2 (09:00→23:07)
[2016-12-19] MEDS: IBUPROFEN 600 MG TAB PO PRN (09:19)
[2016-12-19] MEDS ORDERED: diphenhydrAMINE HCL 50 MG/ML VIAL IV PUSH ONE (12:00)
[2016-12-19] MEDS ORDERED: MEASLES, MUMPS, RUBELLA VACCINE 0.5 ML VIAL SQ ONE (16:00)
[2016-12-19] MEDS ORDERED: DIPHTH/TETANUS/ACEL PERTUSSIS (BOOSTER) 0.5 ML VIAL/PFS IM ONE (16:00)
[2016-12-20] VITALS (11 sets, daily range): BP systolic 120–147; BP diastolic 64–93; PULSE 72–89; RESP 18–20; TEMP 98.7–99.3
--- NOTE | 2016-12-20 08:24 | HHI.DCPOC ---
Discharge Care Plan Diagnosis: (1) Normal vaginal delivery Report Symptoms to Your Doctor -Temperature above 100.5 degrees -Redness, of incision or excessive or foul smelling drainage -Unusual pain or calf pain -Increased vaginal bleeding -Painful or difficulty urinating -Feelings of extreme sadness or anxiety after 2 weeks Goals to Promote Your Health * To prevent worsening of your condition and complications * To maintain your health at the optimal level Directions to Meet Your Goals Take your medications as prescribed Follow your dietary instruction Follow activity as directed Ensure plenty of rest for recovery Drink fluids for hydration Keep your appointments as scheduled Take your immunizations and boosters as scheduled If your symptoms worsen call your PCP, if no PCP go to Urgent Care Center or Emergency Room Smoking is Dangerous to Your Health. Avoid second hand smoke Call the 24-hour crisis hotline for domestic abuse at René Tyson MD R1 Dec 20, 2016 08:23
--- NOTE | 2016-12-20 08:31 | HHI.OB ---
Subjective Remarks 36 year old female s/p NVD at 38/4 wks gestation, PPD 1. AFVSS. Patient reports she is feeling well. Bleeding is decreasing and pain is well- controlled. She is breast + formula feeding and bonding well with baby. Ambulating without difficulties. She is tolerating a diet without nausea or vomiting. She has not had a bowel movement. She has passed gas. Denies chest pain, dysuria, shortness of breath, or calf pain. (René Tyson MD R1) Objective Vitals/I&O Vital Signs Date Time Temp Pulse Resp B/P Pulse Ox O2 Delivery O2 Flow Rate FiO2 12/20/16 07:50 88 18 147/93 12/20/16 07:50 98.7 12/20/16 05:00 99.3 79 18 131/80 12/20/16 03:01 87 144/81 12/20/16 02:58 89 140/88 12/20/16 02:01 88 120/64 12/20/16 01:10 18 12/20/16 01:00 84 137/81 12/20/16 00:21 18 12/20/16 00:00 87 122/67 12/19/16 23:32 97.7 18 12/19/16 23:00 87 133/83 12/19/16 22:15 18 12/19/16 22:00 86 126/70 12/19/16 21:00 90 144/79 12/19/16 20:00 81 141/84 12/19/16 19:31 97.8 12/19/16 19:31 18 12/19/16 19:00 81 137/82 12/19/16 18:01 81 130/83 12/19/16 17:00 85 161/98 12/19/16 16:00 91 146/91 12/19/16 15:06 20 12/19/16 15:00 91 142/96 12/19/16 14:00 83 125/79 12/19/16 13:48 18 12/19/16 13:01 79 127/77 12/19/16 12:00 82 121/78 12/19/16 11:00 88 119/66 12/19/16 10:32 20 12/19/16 10:00 97 122/70 12/19/16 09:00 93 127/81 Objective Remarks GENERAL: Well-nourished, well-developed patient. CARDIOVASCULAR: Regular rate and rhythm without murmurs, gallops, or rubs. RESPIRATORY: Breath sounds equal bilaterally. No accessory muscle use. ABDOMEN/GI: Abdomen soft, non-tender. Fundus: Firm, non-tender at umbilicus. GENITOURINARY: Light to moderate bleeding. EXTREMITIES: No cyanosis or edema, non-tender, without signs of DVT. Medications and IVs Current Medications Medications (Trade) Dose Ordered Sig/Briseida Route Start Time Stop Time Status Last Admin (Tylenol) 650 mg Q4H PRN PO 12/19/16 03:30 (Motrin) 600 mg Q6H PRN PO 12/19/16 03:30 12/19/16 09:19 (Percocet 5-325 Mg) 2 tab Q4H PRN PO 12/19/16 03:30 (Americaine 20% Top Spr) 1 spray Q4H PRN TOPICAL 12/19/16 03:30 (Tucks Pads) 1 applic QID PRN TOPICAL 12/19/16 03:30 (Ada-Colace) 2 tab Q12H PRN PO 12/19/16 03:30 (Ambien) 5 mg HS PRN PO 12/19/16 03:30 (Mag-Al Plus Susp Liq) 15 ml Q8H PRN PO 12/19/16 03:30 Ondansetron HCl 4 mg 4 mg Q6H PRN PO 12/19/16 03:30 (Lr 1000 ml Inj) 1,000 ml @ 75 mls/hr [id number] IV 12/19/16 03:34 12/19/16 15:17 (NS Flush) 2 ml UNSCH PRN IV 12/19/16 03:45 IV Flush 2 ml 2 ml BID IV 12/19/16 09:00 (Magnesium Sulfate 40 Gm Premix) 1,000 ml @ 50 mls/hr Q20H IV 12/19/16 03:34 12/19/16 22:22 (René Tyson MD R1) Assessment/Plan Assessment and Plan 36 yo female s/p NVD PPD 1 . - AFVSS - Continue routine care - Motrin PRN pain - Encourage OOB - Pelvic rest x 6 wks. - Contraception: Undetermined at this time - Anticipate D/C 12/[address] Koo (René Tyson MD R1) Attending Attestation -Pt seen and examined -Agree with above. -Pt s/p magnesium sulfate at ~3am. -BPs normal a few outliers of 140/90's. -continue to monitor BPs overnight night -d/c taisha tomorrow (Jocelynn Koo MD) René Tyson MD R1 Dec 20, 2016 08:31 Jocelynn Koo MD Dec 20, 2016 08:59
[2016-12-20] MEDS: IBUPROFEN 600 MG TAB PO PRN (14:56)
[2016-12-20] MEDS: LACTATED RINGER'S 1000 ML INJ 1,000 ML IV SCH (19:34)
[2016-12-20] MEDS: MAGNESIUM SULFATE 40 GM PREMIX 1,000 ML IV SCH (19:34)
[2016-12-20] MEDS: SODIUM CHLORIDE 0.9% FLUSH 5 ML FLUSH IV SCH (20:42)
[2016-12-21] MEDS: IBUPROFEN 600 MG TAB PO PRN ×2 (02:08→08:59)
[2016-12-21 08:05] VITALS: BP 139/84; PULSE 69; RESP 18; TEMP 98.4
[2016-12-21] MEDS ORDERED: IBUP-232 PO (09:23)
--- NOTE | 2016-12-21 10:59 | HHI.OB ---
Subjective Post Day: 2 Remarks day #2. AFVSS overnight. BP up to 139/82 overnight. Pain minimal. Decreased lochia. Denies dysuria. No breast tenderness. She is feeding the baby via breast. Appetite good. No nausea or vomiting. Endorses flatus. Endorses bowel movement. Ambulating well. Denies calf pain, shortness of breath, or cough. Otherwise, she is doing well this morning and has no other complaints. Objective Vitals/I&O Vital Signs Date Time Temp Pulse Resp B/P Pulse Ox O2 Delivery O2 Flow Rate FiO2 12/21/16 08:05 98.4 69 18 139/84 12/20/16 20:10 133/83 12/20/16 20:10 99.0 72 20 Objective Remarks GENERAL: Well-nourished, well-developed patient. CARDIOVASCULAR: Regular rate and rhythm without murmurs, gallops, or rubs. RESPIRATORY: Breath sounds equal bilaterally. No accessory muscle use. ABDOMEN/GI: Abdomen soft, non-tender. Fundus: Firm, non-tender at umbilicus. GENITOURINARY: Light to moderate bleeding. EXTREMITIES: No cyanosis or edema, non-tender, without signs of DVT. Medications and IVs Current Medications Medications (Trade) Dose Ordered Sig/Briseida Route Start Time Stop Time Status Last Admin (Tylenol) 650 mg Q4H PRN PO 12/19/16 03:30 (Motrin) 600 mg Q6H PRN PO 12/19/16 03:30 12/21/16 08:59 (Percocet 5-325 Mg) 2 tab Q4H PRN PO 12/19/16 03:30 (Americaine 20% Top Spr) 1 spray Q4H PRN TOPICAL 12/19/16 03:30 (Tucks Pads) 1 applic QID PRN TOPICAL 12/19/16 03:30 (Ada-Colace) 2 tab Q12H PRN PO 12/19/16 03:30 12/21/16 02:08 (Ambien) 5 mg HS PRN PO 12/19/16 03:30 (Mag-Al Plus Susp Liq) 15 ml Q8H PRN PO 12/19/16 03:30 Ondansetron HCl 4 mg 4 mg Q6H PRN PO 12/19/16 03:30 (Lr 1000 ml Inj) 1,000 ml @ 75 mls/hr [id number] IV 12/19/16 03:34 12/19/16 15:17 (NS Flush) 2 ml UNSCH PRN IV 12/19/16 03:45 IV Flush 2 ml 2 ml BID IV 12/19/16 09:00 (Magnesium Sulfate 40 Gm Premix) 1,000 ml @ 50 mls/hr Q20H IV 12/19/16 03:34 12/19/16 22:22 Assessment/Plan Assessment and Plan 36 yo female s/p NVD PPD 2 - Continue routine care - Motrin PRN pain - Encourage OOB - Pelvic rest x 6 wks. - Contraception: Undetermined at this time - F/u with OB in [address] Spence Discharge Planning Today Anthony Benavides MD R1 Dec 21, 2016 10:59
== END 2016-12-21 13:58 | disposition home or self-care (01) | DRG 775 ==
LOC: HOBED 01:43 → H2EB 02:10 → H2EA 05:23 → H1EA 12-20 04:29
PROVIDERS: ADMIT Obstetrics & Gynecology; ATTEND Obstetrics & Gynecology
PROC: 10E0XZZ Delivery of Products of Conception, External Approach (ICD-10-PCS; principal; 2016-12-19)
DX: O16.4 Unspecified maternal hypertension, complicating childbirth (principal); O99.824 Streptococcus B carrier state complicating childbirth; O09.523 Supervision of elderly multigravida, third trimester; Z37.0 Single live birth; Z3A.38 38 weeks gestation of pregnancy
CPT/HCPCS: 59025; 80053; 85025; 86900; 86901; 90715; 99285; J2540; J2590; J3010; J3475; J7120

== ENCOUNTER 2017-09-15 23:12 | Emergency (ER) | payer MEDICAID ==
[~2017-09-15] VITALS: Ht 165.1 cm; Wt 86.0 kg
[~2017-09-15 23:12] MED LIST changes: -AZIT250T3 PO; +IBUP-232 PO
[2017-09-16 00:37] VITALS: BP 141/70; PULSE 89; RESP 16; TEMP 98.4; O2SAT 100
[2017-09-16] MEDS ORDERED: SODIUM CHLOR 0.9% 1000 ML INJ 1,000 ML IV ONE (00:49)
--- NOTE | 2017-09-16 00:53 | PD ---
HPI Chief Complaint: Headache Time Seen by Provider: 00:49 Travel History International Travel<30 days: No Contact w/Intl Traveler<30days: No Traveled to known affect area: No History of Present Illness HPI This is a 37-year-old female who presents for evaluation of a headache. Symptoms started a few days ago. She reports frontal and bitemporal aching headache which is constant. She has not tried using any cirj-hei-dbassug medication for her symptom relief. She reports that she has essentially been experiencing similar daily headaches for the past several months, ever since she was last year. She never really tried using any pvhq-nwk-sgjxfdu medications to help with her headaches. Her headache was worse over the past few days and this is what prompted evaluation today. She denies any blurred vision, sensitivity light, sound, smell, nausea, vomiting, cough, congestion, sore throat, fevers or chills, abdominal pain, lower extremity edema. No significant past medical history. No other complaints at this time. PFSH Past Medical History Cancer: No Cardiovascular Problems: Yes (HTN) Endocrine: No Genitourinary: No Hypertension: Yes Musculoskeletal: No Neurologic: No Psychiatric: No Reproductive: No Respiratory: Yes (pneumonia in august) Migraines: Yes Influenza Vaccination: No ?: Not LMP: 08/31/17 : 5 Para: 3 Miscarriage: 1 : 0 Ovarian Cysts: Yes Past Surgical History Surgical History: No Previous Surgery Other Surgery: No Social History Alcohol Use: No Tobacco Use: No Substance Use: No Allergies-Medications (Allergen,Severity, Reaction): Coded Allergies: No Known Allergies (Unverified Adverse Reaction, Unknown, 09/16/17) Reported Meds & Prescriptions Reported Meds & Active Scripts Active Ibuprofen 600 Mg Tab 600 Mg PO Q6H PRN Ferrous Sulfate DR (Ferrous Sulfate) 324 Mg Tabdr 324 Mg PO TID Calna ( Vitamin) 1 Tab Tab 1 Tab PO DAILY Review of Systems Except as stated in HPI: all other systems reviewed are Neg Physical Exam Narrative GENERAL: Well-developed well-nourished female no acute distress SKIN: Warm and dry. HEAD: Atraumatic. Normocephalic. EYES: Pupils equal and round. No scleral icterus. No injection or drainage. ENT: No nasal bleeding or discharge. Mucous membranes pink and moist. NECK: Trachea midline. No JVD. CARDIOVASCULAR: Regular rate and rhythm. No murmur appreciated. RESPIRATORY: No accessory muscle use. Clear to auscultation. Breath sounds equal bilaterally. GASTROINTESTINAL: Abdomen soft, non-tender, nondistended. Hepatic and splenic margins not palpable. MUSCULOSKELETAL: No obvious deformities. No clubbing. No cyanosis. No edema. NEUROLOGICAL: Awake and alert. No obvious cranial nerve deficits. Motor grossly within normal limits. Normal speech. PSYCHIATRIC: Appropriate mood and affect; insight and judgment normal. Data Data Last Documented VS Vital Signs Date Time Temp Pulse Resp B/P (MAP) Pulse Ox O2 Delivery O2 Flow Rate FiO2 09/16/17 00:37 98.4 89 16 141/70 (93) 100 Orders Orders Complete Blood Count With Diff (09/16/17 00:49) Basic Metabolic Panel (Bmp) (09/16/17 00:49) Ct Brain W/O Iv Contrast(Rout) (09/16/17 00:49) Iv Access Insert/Monitor (09/16/17 00:49) Ed Urine Pregnancytest Poc (09/16/17 00:49) Acetaminophen (Tylenol) (09/16/17 01:00) Diphenhydramine Inj (Benadryl Inj) (09/16/17 01:00) Metoclopramide Inj (Reglan Inj) (09/16/17 01:00) Sodium Chlor 0.9% 1000 Ml Inj (Ns 1000 M (09/16/17 00:49) Ketorolac Inj (Toradol Inj) (09/16/17 01:45) Potassium Chloride (Kcl) (09/16/17 02:00) Ed Discharge Order (09/16/17 01:54) Labs Laboratory Tests Test 09/16/17 01:05 White Blood Count 6.6 TH/MM3 Red Blood Count 4.19 MIL/MM3 Hemoglobin 12.6 GM/DL Hematocrit 37.2 % Mean Corpuscular Volume 88.8 FL Mean Corpuscular Hemoglobin 30.1 PG Mean Corpuscular Hemoglobin Concent 33.9 % Red Cell Distribution Width 14.4 % Platelet Count 304 TH/MM3 Mean Platelet Volume 9.8 FL Neutrophils (%) (Auto) 48.4 % Lymphocytes (%) (Auto) 42.0 % Monocytes (%) (Auto) 6.9 % Eosinophils (%) (Auto) 2.1 % Basophils (%) (Auto) 0.6 % Neutrophils # (Auto) 3.2 TH/MM3 Lymphocytes # (Auto) 2.8 TH/MM3 Monocytes # (Auto) 0.5 TH/MM3 Eosinophils # (Auto) 0.1 TH/MM3 Basophils # (Auto) 0.0 TH/MM3 CBC Comment DIFF FINAL Differential Comment Blood Urea Nitrogen 16 MG/DL Creatinine 0.81 MG/DL Random Glucose 73 MG/DL Calcium Level 8.5 MG/DL Sodium Level 141 MEQ/L Potassium Level 3.4 MEQ/L Chloride Level 107 MEQ/L Carbon Dioxide Level 29.2 MEQ/L Anion Gap 5 MEQ/L Estimat Glomerular Filtration Rate 96 ML/MIN MDM Medical Decision Making Medical Screen Exam Complete: Yes Emergency Medical Condition: Yes Medical Record Reviewed: Yes Differential Diagnosis Tension headache, migraine, hypertensive urgency, intracranial mass, pseudotumor cerebri, sinusitis, subarachnoid hemorrhage Narrative Course This is a 37-year-old female who has been experiencing daily frontal headaches for the past several months, worse over the past few days. She has no focal neurologic deficits. She has no associated symptoms and she has not tried using any pjle-enm-xbovpbv analgesics. Upon reexamination she feels significantly improved. Urine is negative. Potassium is 3.4, oral potassium chloride has been ordered. CT the brain is normal. The patient is stable for discharge. Diagnosis Primary Impression: Cephalgia Additional Instructions: Follow-up with primary care physician. Return for any emergent medical conditions. Med/Other Pt SpecificInfo: No Change to Meds Disposition: 01 DISCHARGE HOME Condition: Stable Khadar Cruz Sep 16, 2017 00:53
[2017-09-16] MEDS ORDERED: ACETAMINOPHEN 325 MG TAB PO ONE (01:00)
[2017-09-16] MEDS ORDERED: diphenhydrAMINE HCL 50 MG/ML VIAL IVP ONE (01:00)
[2017-09-16] MEDS ORDERED: METOCLOPRAMIDE HCL 10 MG/2 ML VIAL IVP ONE (01:00)
[2017-09-16 01:20] LABS: AUTOMATED NEUTROPHIL # 3.2 TH/MM3 (1.8-7.7); BASOPHIL % 0.6 % (0.0-2.0); EOSINOPHIL # 0.1 TH/MM3 (0-0.4); EOSINOPHIL % 2.1 % (0.0-4.0); HEMATOCRIT 37.2 % (35.0-46.0); HEMOGLOBIN 12.6 GM/DL (11.6-15.3); LYMPHOCYTE # 2.8 TH/MM3 (1.0-4.8); MEAN CELL VOLUME 88.8 FL (80.0-100.0); MEAN CORPUSCULAR HEMOGLOBIN 30.1 PG (27.0-34.0); MEAN CORPUSCULAR HGB CONC 33.9 % (32.0-36.0); MEAN PLATELET VOLUME 9.8 FL (7.0-11.0); MONO % 6.9 % (0.0-8.0); MONOCYTE # 0.5 TH/MM3 (0-0.9); NEUT % 48.4 % (16.0-70.0); PLATELET COUNT 304 TH/MM3 (150-450); RED BLOOD COUNT 4.19 MIL/MM3 (4.00-5.30); RED CELL DISTRIBUTION WIDTH 14.4 % (11.6-17.2); WHITE BLOOD COUNT 6.6 TH/MM3 (4.0-11.0)
--- NOTE | 2017-09-16 01:32 | RADRPT ---
EXAM DATE/TIME: 09/16/2017 01:13 [facility] COMPARISON: No previous studies available for comparison. INDICATIONS : Cephalgia. RADIATION DOSE: 56.35 CTDIvol (mGy) MEDICAL HISTORY : Hypertension. SURGICAL HISTORY : None. ENCOUNTER: Initial ACUITY: 2 days PAIN SCALE: 4/10 LOCATION: cranial TECHNIQUE: Multiple contiguous axial images were obtained of the head. Using automated exposure control and adj ustment of the mA and/or kV according to patient size, radiation dose was kept as low as reasonably a chievable to obtain optimal diagnostic quality images. DICOM format image data is available electro nically for review and comparison. FINDINGS: CEREBRUM: The ventricles are normal for age. No evidence of midline shift, mass lesion, hemorrhage or acute in farction. No extra-axial fluid collections are seen. POSTERIOR FOSSA: The cerebellum and brainstem are intact. The 4th ventricle is midline. The cerebellopontine angle i s unremarkable. EXTRACRANIAL: The visualized portion of the orbits is intact. SKULL: The calvaria is intact. No evidence of skull fracture. CONCLUSION: Negative noncontrast head CT. Easton Edge MD on September 16, 2017 at 1:30 Board Certified Radiologist. This report was verified electronically.
[2017-09-16 01:40] LABS: BICARBONATE 29.2 MEQ/L (21.0-32.0); CALCIUM 8.5 MG/DL (8.5-10.1); CREATININE 0.81 MG/DL (0.50-1.00)
[2017-09-16] MEDS ORDERED: KETOROLAC TROMETHAMINE 30 MG/ML (IVP) VIAL IV PUSH ONE (01:45)
[2017-09-16] MEDS ORDERED: POTASSIUM CHLORIDE 20 MEQ CONTROLLED RELEASE TAB PO ONE (02:00)
== END 2017-09-16 03:00 | disposition home or self-care (01) ==
LOC: NEPD 23:12
DX: R51 Headache (principal); I10 Essential (primary) hypertension
CPT/HCPCS: 70450; 80048; 84703; 85025; 96361; 96374; 96375; 99284; J1200; J1885; J2765; J7030

== ENCOUNTER 2018-08-12 03:12 | Inpatient (IN) ==
[2018-08-12] MEDS ORDERED: Oxytocin 30 Units/500ml Premix 30 UNITS/500 ML BAG IV.SIG ONE (04:23)
[2018-08-12] MEDS ORDERED: Sod Chloride 0.9% Inj 1,000 ML IV.CONT PRN (04:23)
[2018-08-12] MEDS ORDERED: Sodium Chlor 0.9% Inj 500 ML IV.SIG PRN (04:23)
[2018-08-12] MEDS ORDERED: fentaNYL Citrate Inj 100 MCG/2 ML Ampul IV.PUSH PRN ×2 (04:23)
[2018-08-12] MEDS ORDERED: Naloxone Inj 0.4 MG/ML Vial IV.PUSH PRN ×2 (04:23→15:24)
--- NOTE | 2018-08-12 04:29 | ED ---
History of Present Illness Primary Care Physician: NOT REQUIRED Chief Complaint: Contractions History of Present Illness: 38-year-old at 39 weeks by ultrasound patient of Cheyenne Jackman presents complaining of contractions. uneventful to date. Reports movement. 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 This includes certification that hospital inpatient services are reasonable and necessary and in the case of services not specified as inpatient-only under 42 CFR 419.22(n), that they are appropriately provided as inpatient services in accordance to with the 2-midnight benchmark under 43 CFR 412.3(e) Estimated Total Length of Stay (Days): 2 Plans for Post Hospital Care: Home Review of Systems All other systems reviewed negative except as stated in HPI PMFSH - History History Provided By: Patient - Medical History Medical History: Medical History (Last Reviewed 04/03/18 @ 22:23 by Ana Paula Lopez) Patient denies medical problems - Surgical History Surgical History: Surgical History (Last Reviewed 04/03/18 @ 22:23 by Ana Paula Lopez) No history of previous surgery - Tobacco History Second Hand Smoke Exposure: No Smoking Status: Never smoker - Alcohol History How Often Do You Have a Drink Containing Alcohol: Never - Substance Use History Substance History: No History of Abuse - Travel History History of Recent Travel: No Medications and Allergies Active Medications: Active Medications Citric Acid/Sodium Citrate (Sodium Citrate/Citric Acid Liq) 30 ml PO SKIING INSTRUCTOR [facility] Stop: 08/16/18 04:29 Fentanyl Citrate (Fentanyl Inj) 50 mcg IV.PUSH Q1H PRN PRN Reason: Pain Scale 3 - 5 Fentanyl Citrate (Fentanyl Inj) 100 mcg IV.PUSH Q1H PRN PRN Reason: PAIN SCALE 6 TO 10 Lactated Ringer's (Lr 1000 Ml Inj) 1,000 mls @ 3,000 mls/hr IV.SIG UNSCH PRN PRN Reason: compromise or epidural Lactated Ringer's (Lr 1000 Ml Inj) 1,000 mls @ 125 mls/hr IV.CONT .Q8H [facility] Lidocaine HCl (Xylocaine 1% Inj) 0.1 ml I-DERMAL PRN PRN PRN Reason: For IV start Stop: 08/15/18 04:22 Lidocaine HCl (Xylocaine 1% Inj) 10 ml INFILTRATN PRN PRN PRN Reason: For episiotomy repair Stop: 08/14/18 04:22 Mineral Oil (Muri-Lube Oil) 10 ml TOPICAL PRN PRN PRN Reason: PRN perineal massage Allergies Allergy/AdvReac Type Severity Reaction Status Date / Time cephalexin [From Keflex] Allergy Severe Hives Verified 05/25/18 20:49 Home Medications Medication Instructions Recorded Confirmed Type [id number] acid 1 tab PO DAILY 04/03/18 05/25/18 History [PreNata] Exam Vital signs: Vital Signs 08/12/18 03:33 08/12/18 03:34 08/12/18 03:53 Temperature 99.2 F Pulse Rate 53 L 53 L Respiratory Rate 20 Blood Pressure 158/75 H 153/71 H Narrative: GENERAL: Well-nourished, well-developed patient. SKIN: Warm and dry. HEAD: Normocephalic and atraumatic. EYES: No scleral icterus. No injection or drainage. ENT: No nasal drainage noted. Mucous membranes pink. Airway patent. NECK: Supple, trachea midline. No JVD. CARDIOVASCULAR: Regular rate and rhythm without murmurs, gallops, or rubs. RESPIRATORY: Breath sounds equal bilaterally. No accessory muscle use. BREASTS: Bilateral exam showed no masses , no retractions, no nipple discharge. ABDOMEN/GI: Abdomen soft, non-tender, bowel sounds present, no rebound, no guarding Gravid to 39 weeks size Fundal Height: 39 GENITOURINARY: External Genitalia: intact and normal in appearance BUS glands: Unremarkable Cervix: Soft Dilatation: 3-4 Effacement: 60% effaced Station: -2 Presentation: Vertex Membranes: Intact Uterine Contractions: Present FHT's: Category: 1 Variability: Moderate Decels: [-] EXTREMITIES: No cyanosis or edema. BACK: Nontender without obvious deformity. No CVA tenderness. NEUROLOGICAL: Awake and alert. Motor and sensory grossly within normal limits. Five out of 5 muscle strength in all muscle groups. Normal speech. Assessment and Plan - Diagnosis (1) Advanced maternal age during in third trimester Status: Acute (2) Active labor at term Status: Acute (3) Grand multiparity Code(s): Z64.1 - Problems related to multiparity Status: Acute (4) 39 weeks gestation of Code(s): Z3A.39 - 39 weeks gestation of Status: Acute - Plan Admit Discharge Plan - Discharge Disposition Patient Disposition: ED Admit(ED Internal Use Only) - Physicians Team ED Provider: Shonda Pena Primary Care Provider: NOT REQUIRED,
[2018-08-12] MEDS ORDERED: Citric Acid/Sodium Citrate Liq 30 ML UDC PO SCH (04:30)
[2018-08-12 05:31] LABS: Baso % (Auto) 0.5 % (0.0-2.0); Eos # (Auto) 0.1 th/mm3 (0.0-0.4); Eos % (Auto) 1.3 % (0.0-4.0); Hematocrit 38.3 % (35.0-46.0); Hemoglobin 12.7 gm/dL (11.6-15.3); Lymph # (Auto) 2.2 th/mm3 (1.0-4.8); Lymph % (Auto) 28.3 % (9.0-44.0); Mean Corpuscular HGB Conc 33.1 % (32.0-36.0); Mean Corpuscular Hemoglobin 30.1 pg (27.0-34.0); Mean Corpuscular Volume 91.1 fL (80.0-100.0); Mean Platelet Volume 11.2 fL (7.0-11.0); Mono # (Auto) 0.8 th/mm3 (0.0-0.9); Mono % (Auto) 9.8 % (0.0-8.0); Neut # (Auto) 4.6 th/mm3 (1.8-7.7); Neut % (Auto) 60.1 % (16.0-70.0); Platelet Count 266 th/mm3 (150-450); Red Blood Count 4.21 mil/mm3 (4.00-5.30); Red Cell Distribution Width 15.3 % (11.6-17.2); White Blood Count 7.7 th/mm3 (4.0-11.0)
[2018-08-12 05:42] LABS: Albumin 2.6 g/dL (3.4-5.0); Anion Gap 10 meq/L (5-15); Aspartate Aminotransferase 13 U/L (15-37); Blood Urea Nitrogen 5 mg/dL (7-18); Calcium 8.8 mg/dL (8.5-10.1); Carbon Dioxide 22.9 meq/L (21.0-32.0); Chloride 107 meq/L (98-107); Glomerular Filtration Rate Greater Than 89 mL/min (>89); Glucose,Random 83 mg/dL (74-106); Potassium 4.1 meq/L (3.5-5.1); Sodium 140 meq/L (136-145)
[2018-08-12 05:44] LABS: Alanine Aminotransferase 9 U/L (10-53); Alkaline Phosphatase 190 U/L (45-117); Total Protein 7.1 g/dL (6.4-8.2)
[2018-08-12 06:32] LABS: Bacteria,Urine Many /hpf; Bilirubin,Urine Negative (Negative); Clarity,Urine Cloudy (Clear); Color,Urine Yellow (Yellw/Straw); Glucose,Urine (UA) Negative (Negative); Leukocyte Esterase,Urine Moderate (Negative); Mucus,Urine Few /lpf (Occasional); Nitrite,Urine Negative (Negative); Specific Gravity,Urine 1.012 (1.002-1.035); Squamous Epithelial Cell,Urine 69 /hpf (0-5)
[2018-08-12] MEDS ORDERED: Labetalol HCl Inj 100 MG/20 ML Vial ONE (06:33)
[2018-08-12] MEDS ORDERED: Labetalol HCl Inj 100 MG/20 ML Vial IV.PUSH SCH (07:00)
--- NOTE | 2018-08-12 08:11 | P.HPOB ---
Patient Name: Arabella Boo Date of : 78 Patient Status: Inpatient Attending Provider: Shonda Pena Date: 08/12/18 04:25 Initialization Date: 08/12/18 04:25 History of Present Illness Primary Care Physician: NOT REQUIRED Chief Complaint: Contractions History of Present Illness: 38-year-old at 39 weeks by ultrasound patient of Cheyenne Jackman presents complaining of contractions. uneventful to date. Reports movement. 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 This includes certification that hospital inpatient services are reasonable and necessary and in the case of services not specified as inpatient-only under 42 CFR 419.22(n), that they are appropriately provided as inpatient services in accordance to with the 2-midnight benchmark under 43 CFR 412.3(e) Estimated Total Length of Stay (Days): 2 Plans for Post Hospital Care: Home Review of Systems All other systems reviewed negative except as stated in HPI PMFSH - History History Provided By: Patient - Medical History Medical History: Medical History (Last Reviewed 04/03/18 @ 22:23 by Ana Paula Lopez) Patient denies medical problems - Surgical History Surgical History: Surgical History (Last Reviewed 04/03/18 @ 22:23 by Ana Paula Lopez) No history of previous surgery - Tobacco History Second Hand Smoke Exposure: No Smoking Status: Never smoker - Alcohol History How Often Do You Have a Drink Containing Alcohol: Never - Substance Use History Substance History: No History of Abuse - Travel History History of Recent Travel: No Medications and Allergies Active Medications: Active Medications Citric Acid/Sodium Citrate (Sodium Citrate/Citric Acid Liq) 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 [facility] Stop: 08/16/18 04:29 Fentanyl Citrate (Fentanyl Inj) 50 mcg IV.PUSH Q1H PRN PRN Reason: Pain Scale 3 - 5 Fentanyl Citrate (Fentanyl Inj) 100 mcg IV.PUSH Q1H PRN PRN Reason: PAIN SCALE 6 TO 10 Lactated Ringer's (Lr 1000 Ml Inj) 1,000 mls @ 3,000 mls/hr IV.SIG UNSCH PRN PRN Reason: compromise or epidural Lactated Ringer's (Lr 1000 Ml Inj) 1,000 mls @ 125 mls/hr IV.CONT .Q8H [facility] Lidocaine HCl (Xylocaine 1% Inj) 0.1 ml I-DERMAL PRN PRN PRN Reason: For IV start Stop: 08/15/18 04:22 Lidocaine HCl (Xylocaine 1% Inj) 10 ml INFILTRATN PRN PRN PRN Reason: For episiotomy repair Stop: 08/14/18 04:22 Mineral Oil (Muri-Lube Oil) 10 ml TOPICAL PRN PRN PRN Reason: PRN perineal massage Allergies Allergy/AdvReac Type Severity Reaction Status Date / Time cephalexin [From Keflex] Allergy Severe Hives Verified 05/25/18 20:49 Home Medications Medication Instructions Recorded Confirmed Type [id number] acid 1 tab PO DAILY 04/03/18 05/25/18 History [PreNata] Exam Vital signs: Vital Signs 08/12/18 03:33 08/12/18 03:34 08/12/18 03:53 Temperature 99.2 F Pulse Rate 53 L 53 L Respiratory Rate 20 Blood Pressure 158/75 H 153/71 H Narrative: GENERAL: Well-nourished, well-developed patient. SKIN: Warm and dry. HEAD: Normocephalic and atraumatic. EYES: No scleral icterus. No injection or drainage. ENT: No nasal drainage noted. Mucous membranes pink. Airway patent. NECK: Supple, trachea midline. No JVD. CARDIOVASCULAR: Regular rate and rhythm without murmurs, gallops, or rubs. RESPIRATORY: Breath sounds equal bilaterally. No accessory muscle use. BREASTS: Bilateral exam showed no masses , no retractions, no nipple discharge. ABDOMEN/GI: Abdomen soft, non-tender, bowel sounds present, no rebound, no guarding Gravid to 39 weeks size Fundal Height: 39 GENITOURINARY: External Genitalia: intact and normal in appearance BUS glands: Unremarkable Cervix: Soft Dilatation: 3-4 Effacement: 60% effaced Station: -2 Presentation: Vertex Membranes: Intact Uterine Contractions: Present FHT's: Category: 1 Variability: Moderate Decels: [-] EXTREMITIES: No cyanosis or edema. BACK: Nontender without obvious deformity. No CVA tenderness. NEUROLOGICAL: Awake and alert. Motor and sensory grossly within normal limits. Five out of 5 muscle strength in all muscle groups. Normal speech. Assessment and Plan - Diagnosis (1) Advanced maternal age during in third trimester Status: Acute (2) Active labor at term Status: Acute (3) Grand multiparity Code(s): Z64.1 - Problems related to multiparity Status: Acute (4) 39 weeks gestation of Code(s): Z3A.39 - 39 weeks gestation of Status: Acute (5) Elevated Blood pressure-patient reports to the nurse that she had taken antihypertensives the first part of her and then subsequently discontinued, blood pressure is elevated on the floor CBC CMP within normal, labetalol x1 given BPs improved we will continue to monitor - Plan Admit Discharge Plan - Discharge Disposition Patient Disposition: ED Admit(ED Internal Use Only) - Physicians Team ED Provider: Shonda Pena Primary Care Provider: NOT REQUIRED,
--- NOTE | 2018-08-12 11:19 | P.PN ---
Subjective Interval history: OBHG Attending The patient is a 38 year-old with IUP at 39 weeks who was admitted for elevated BP at term. We discussed the goal of a healthy and healthy mother. We discussed that our primary goal is a vaginal delivery but but that sometimes delivery is indicated. We discussed the risks of vaginal delivery including lacerations, bleeding/ hemorrhage, and shoulder dystocia. We discussed that shoulder dystocia is unpredictable but she has no indications to recommend delivery. SHe does not believe this baby is significantly larger than her others. Her GDM testing was negative. We discussed the risks of shoulder dystocia that include but are not limited to a approximately 3-5% risk of permanent and irreversible neurological injury. We discussed the indications for section including maternal indications, indications, and emergent indications. The risks, benefits, and alternatives of section were discussed with the patient. The risks include but are not limited to pain, infection, bleeding, injury to other organs like the bladder/bowel/nerves/vessels, injury to the baby, need for repeat operation, need for hysterectomy, need for blood transfusion, wound infection or breakdown, and other possible risks. All the patient's questions were answered and consent had previously been signed. She desires to proceed with a vaginal delivery. SVE 3-4/60/-2 with no appreciable cervical change. We discussed augmentation with oxytocin and the patient is in agreement. Oxytocin will be initiated. Physical Exam Vital signs: Vital Signs 08/12/18 03:33 08/12/18 03:34 08/12/18 03:53 Temperature 99.2 F Pulse Rate 53 L 53 L Respiratory Rate 20 Blood Pressure 158/75 H 153/71 H 08/12/18 06:21 08/12/18 06:27 08/12/18 06:51 Temperature 99.0 F Pulse Rate 50 L 47 L Respiratory Rate 18 Blood Pressure 170/84 H 124/54 L 08/12/18 07:58 08/12/18 08:00 08/12/18 11:06 Temperature 98.7 F Pulse Rate 59 L 71 Respiratory Rate 18 Blood Pressure 145/73 H 137/58 L Intake & Output 08/11/18 08/12/18 08/12/18 18:59 06:59 18:59 Weight 93.894 kg Results - Labs CBC & Chem 7: 08/12/18 04:30 08/12/18 04:30 Laboratory Results - last 24 hr 08/12/18 08/12/18 08/12/18 03:30 03:30 04:30 WBC 7.7 RBC 4.21 Hgb 12.7 Hct 38.3 MCV 91.1 MCH 30.1 MCHC 33.1 RDW 15.3 Plt Count 266 MPV 11.2 H Neut % (Auto) 60.1 Lymph % (Auto) 28.3 White % (Auto) 9.8 H Eos % (Auto) 1.3 Baso % (Auto) 0.5 Neut # (Auto) 4.6 Lymph # (Auto) 2.2 White # (Auto) 0.8 Eos # (Auto) 0.1 Baso # (Auto) 0.0 WBC Differential . Differential Comment Auto diff final Sodium Potassium Chloride Carbon Dioxide Anion Gap BUN Creatinine Estimated GFR Random Glucose Calcium Total Bilirubin AST ALT Alkaline Phosphatase Total Protein Albumin Ur Collection Type Cancelled Urine Color Yellow Cancelled Urine Clarity Cloudy H Cancelled Urine pH 7.0 Cancelled Ur Specific Jensen 1.012 Cancelled Urine Protein Negative Cancelled Urine Glucose (UA) Negative Cancelled Urine Ketones Negative Cancelled Urine Occult Blood Negative Cancelled Urine Nitrate Negative Cancelled Urine Bilirubin Negative Cancelled Urine Ictotest Cancelled Urine Urobilinogen Less than 2 Cancelled Ur Leukocyte Esterase Moderate H Cancelled Urine RBC 1 Cancelled Urine WBC 4 Cancelled Urine WBC Clumps Cancelled Ur Squamous Epith Cells 69 Cancelled Ur Transition Epith Cell Cancelled Ur Renal Epithelial Cell Cancelled Calcium Carbonate Cryst Cancelled Calcium Oxalate Crystal Cancelled Leucine Crystals Cancelled Cystine Crystals Cancelled Uric Acid Crystals Cancelled Triple Phos Crystals Cancelled Cholesterol Crystals Cancelled Tyrosine Crystals Cancelled Amorphous Sediment Cancelled Urine Bacteria Many H Cancelled Hyaline Casts Cancelled Granular Casts Cancelled Fine Granular Casts Cancelled Coarse Granular Casts Cancelled Waxy Casts Cancelled RBC Casts Cancelled WBC Casts Cancelled Urine Mucus Few H Cancelled Urine Trichomonas Cancelled Urine Yeast Cancelled Ur Yeast w Hyphae Cancelled Urine Sperm Cancelled Ur Oval Fat Bodies Cancelled Micro UA Comment Culture indicated Cancelled Ur Microscopic Review Not Reportable Cancelled Urine Culture Comments Culture indicated Urine Collection Time Cancelled Urine Comment Cancelled Blood Type Blood Type Recheck 08/12/18 08/12/18 04:30 04:30 WBC RBC Hgb Hct MCV MCH MCHC RDW Plt Count MPV Neut % (Auto) Lymph % (Auto) White % (Auto) Eos % (Auto) Baso % (Auto) Neut # (Auto) Lymph # (Auto) White # (Auto) Eos # (Auto) Baso # (Auto) WBC Differential Differential Comment Sodium 140 Potassium 4.1 Chloride 107 Carbon Dioxide 22.9 Anion Gap 10 BUN 5 L Creatinine 0.56 Estimated GFR Greater than 89 Random Glucose 83 Calcium 8.8 Total Bilirubin 0.4 AST 13 L ALT 9 L Alkaline Phosphatase 190 H Total Protein 7.1 Albumin 2.6 L Ur Collection Type Urine Color Urine Clarity Urine pH Ur Specific Jensen Urine Protein Urine Glucose (UA) Urine Ketones Urine Occult Blood Urine Nitrate Urine Bilirubin Urine Ictotest Urine Urobilinogen Ur Leukocyte Esterase Urine RBC Urine WBC Urine WBC Clumps Ur Squamous Epith Cells Ur Transition Epith Cell Ur Renal Epithelial Cell Calcium Carbonate Cryst Calcium Oxalate Crystal Leucine Crystals Cystine Crystals Uric Acid Crystals Triple Phos Crystals Cholesterol Crystals Tyrosine Crystals Amorphous Sediment Urine Bacteria Hyaline Casts Granular Casts Fine Granular Casts Coarse Granular Casts Waxy Casts RBC Casts WBC Casts Urine Mucus Urine Trichomonas Urine Yeast Ur Yeast w Hyphae Urine Sperm Ur Oval Fat Bodies Micro UA Comment Ur Microscopic Review Urine Culture Comments Urine Collection Time Urine Comment Blood Type AB Positive Blood Type Recheck Not needed Assessment and Plan - Assessment (1) Advanced maternal age during in third trimester Status: Acute (2) Active labor at term Status: Acute (3) Grand multiparity Code(s): Z64.1 - Problems related to multiparity Status: Acute (4) 39 weeks gestation of Code(s): Z3A.39 - 39 weeks gestation of Status: Acute
[2018-08-12] MEDS ORDERED: Oxytocin 30 Units/500ml Premix 30 UNITS/500 ML BAG IV.SIG PRN (11:48)
[2018-08-12] MEDS ORDERED: Benzocaine 20% Top Spray 60 ML Can TOPICAL PRN (15:24)
[2018-08-12] MEDS ORDERED: Witch Hazel 50%/Glyderin 12.5% 40 Pad Jar RECTAL PRN (15:24)
[2018-08-12] MEDS ORDERED: Oxytocin 30 Units/500ml Premix 30 UNITS/500 ML BAG IV.CONT PRN (15:24)
[2018-08-12] MEDS ORDERED: Acetaminophen 325 MG Tablet PO PRN (15:24)
[2018-08-12] MEDS ORDERED: Bisacodyl 10 MG Supp RECTAL PRN (15:24)
--- NOTE | 2018-08-12 15:24 | P.PN ---
Subjective Interval history: [facility] Delivery Note The patient progressed to complete/complete/+1 station and proceeded to deliver precipitously. The head delivered spontaneously and atraumatically followed by atraumatic and spontaneous delivery of the anterior shoulder and the remainder of the . No nuchal cord was noted. The was vigorous at delivery and was placed on the maternal abdomen where it was dried. The cord was doubly clamped and cut after a delay of 45 seconds. Cord blood was obtained for the nursery and the placenta delivered spontaneously. No lacerations were noted. Sponge counts were correct x2. EBL 250. Apgars 9/9. weight pending. Both and mother are doing well. Physical Exam Vital signs: Vital Signs 08/12/18 03:33 08/12/18 03:34 08/12/18 03:53 Temperature 99.2 F Pulse Rate 53 L 53 L Respiratory Rate 20 Blood Pressure 158/75 H 153/71 H 08/12/18 06:21 08/12/18 06:27 08/12/18 06:51 Temperature 99.0 F Pulse Rate 50 L 47 L Respiratory Rate 18 Blood Pressure 170/84 H 124/54 L 08/12/18 07:58 08/12/18 08:00 08/12/18 11:06 Temperature 98.7 F Pulse Rate 59 L 71 Respiratory Rate 18 Blood Pressure 145/73 H 137/58 L 08/12/18 11:31 08/12/18 12:01 08/12/18 12:31 Temperature 98.5 F Pulse Rate 58 L 94 H 64 Respiratory Rate Blood Pressure 135/70 141/72 H 137/75 08/12/18 12:44 08/12/18 13:01 08/12/18 13:33 Temperature Pulse Rate 48 L 97 H Respiratory Rate 20 20 Blood Pressure 145/72 H 129/63 08/12/18 13:56 08/12/18 14:00 08/12/18 15:01 Temperature Pulse Rate 87 60 Respiratory Rate 21 Blood Pressure 113/84 147/64 H Intake & Output 08/11/18 08/12/18 08/12/18 18:59 06:59 18:59 Intake Total 1000 / 1000 Balance 1000 / 1000 Weight 93.894 kg Intake: IV 1000 / 1000 LR 1000 mL Inj 1,000 ML @ 125 1000 / 1000 mls/hr IV.CONT .[facility]8H [facility] Rx#: [id number] Results - Labs CBC & Chem 7: 08/12/18 04:30 08/12/18 04:30 Laboratory Results - last 24 hr 08/12/18 08/12/18 08/12/18 03:30 03:30 04:30 WBC 7.7 RBC 4.21 Hgb 12.7 Hct 38.3 MCV 91.1 MCH 30.1 MCHC 33.1 RDW 15.3 Plt Count 266 MPV 11.2 H Neut % (Auto) 60.1 Lymph % (Auto) 28.3 [place] % (Auto) 9.8 H Eos % (Auto) 1.3 Baso % (Auto) 0.5 Neut # (Auto) 4.6 Lymph # (Auto) 2.2 [place] # (Auto) 0.8 Eos # (Auto) 0.1 Baso # (Auto) 0.0 WBC Differential . Differential Comment Auto diff final Sodium Potassium Chloride Carbon Dioxide Anion Gap BUN Creatinine Estimated GFR Random Glucose Calcium Total Bilirubin AST ALT Alkaline Phosphatase Total Protein Albumin Ur Collection Type Cancelled Urine Color Yellow Cancelled Urine Clarity Cloudy H Cancelled Urine pH 7.0 Cancelled Ur Specific [place] 1.012 Cancelled Urine Protein Negative Cancelled Urine Glucose (UA) Negative Cancelled Urine Ketones Negative Cancelled Urine Occult Blood Negative Cancelled Urine Nitrate Negative Cancelled Urine Bilirubin Negative Cancelled Urine Ictotest Cancelled Urine Urobilinogen Less than 2 Cancelled Ur Leukocyte Esterase Moderate H Cancelled Urine RBC 1 Cancelled Urine WBC 4 Cancelled Urine WBC Clumps Cancelled Ur Squamous Epith Cells 69 Cancelled Ur Transition Epith Cell Cancelled Ur Renal Epithelial Cell Cancelled Calcium Carbonate Cryst Cancelled Calcium Oxalate Crystal Cancelled Leucine Crystals Cancelled Cystine Crystals Cancelled Uric Acid Crystals Cancelled Triple Phos Crystals Cancelled Cholesterol Crystals Cancelled Tyrosine Crystals Cancelled Amorphous Sediment Cancelled Urine Bacteria Many H Cancelled Hyaline Casts Cancelled Granular Casts Cancelled Fine Granular Casts Cancelled Coarse Granular Casts Cancelled Waxy Casts Cancelled RBC Casts Cancelled WBC Casts Cancelled Urine Mucus Few H Cancelled Urine Trichomonas Cancelled Urine Yeast Cancelled Ur Yeast w Hyphae Cancelled Urine Sperm Cancelled Ur Oval Fat Bodies Cancelled Micro UA Comment Culture indicated Cancelled Ur Microscopic Review Not Reportable Cancelled Urine Culture Comments Culture indicated Urine Collection Time Cancelled Urine Comment Cancelled Blood Type Blood Type Recheck 08/12/18 08/12/18 04:30 04:30 WBC RBC Hgb Hct MCV MCH MCHC RDW Plt Count MPV Neut % (Auto) Lymph % (Auto) [place] % (Auto) Eos % (Auto) Baso % (Auto) Neut # (Auto) Lymph # (Auto) [place] # (Auto) Eos # (Auto) Baso # (Auto) WBC Differential Differential Comment Sodium 140 Potassium 4.1 Chloride 107 Carbon Dioxide 22.9 Anion Gap 10 BUN 5 L Creatinine 0.56 Estimated GFR Greater than 89 Random Glucose 83 Calcium 8.8 Total Bilirubin 0.4 AST 13 L ALT 9 L Alkaline Phosphatase 190 H Total Protein 7.1 Albumin 2.6 L Ur Collection Type Urine Color Urine Clarity Urine pH Ur Specific [place] Urine Protein Urine Glucose (UA) Urine Ketones Urine Occult Blood Urine Nitrate Urine Bilirubin Urine Ictotest Urine Urobilinogen Ur Leukocyte Esterase Urine RBC Urine WBC Urine WBC Clumps Ur Squamous Epith Cells Ur Transition Epith Cell Ur Renal Epithelial Cell Calcium Carbonate Cryst Calcium Oxalate Crystal Leucine Crystals Cystine Crystals Uric Acid Crystals Triple Phos Crystals Cholesterol Crystals Tyrosine Crystals Amorphous Sediment Urine Bacteria Hyaline Casts Granular Casts Fine Granular Casts Coarse Granular Casts Waxy Casts RBC Casts WBC Casts Urine Mucus Urine Trichomonas Urine Yeast Ur Yeast w Hyphae Urine Sperm Ur Oval Fat Bodies Micro UA Comment Ur Microscopic Review Urine Culture Comments Urine Collection Time Urine Comment Blood Type AB Positive Blood Type Recheck Not needed Assessment and Plan - Assessment (1) Advanced maternal age during in third trimester Status: Acute (2) Active labor at term Status: Acute (3) Grand multiparity Code(s): Z64.1 - Problems related to multiparity Status: Acute (4) 39 weeks gestation of Code(s): Z3A.39 - 39 weeks gestation of Status: Acute
--- NOTE | 2018-08-12 15:39 | P.OBDELI ---
Anesthesia: None Episiotomy: none Vaginal Delivery: Normal Presentation: Occiput anterior Nuchal Cord: None Delayed Cord Clamping (45 sec): Yes Placenta: Spontaneous delivery Laceration: None Infant: Female Infant score (1 min): 9 score (5 min): 9
[2018-08-12] MEDS ORDERED: miSOPROStol 200 MCG Tablet VAGINAL ONE (16:00)
[2018-08-12] MEDS ORDERED: Diphtheria/Tetanus/Pertussis Vaccine Inj 0.5 ML Syringe IM ONE (16:00)
[2018-08-12] MEDS ORDERED: Measles/Mumps/Rubella Vaccine Inj 0.5 ML Vial SQ ONE (16:00)
[2018-08-12] MEDS ORDERED: NIFEdipine 10 MG Capsule ONE (16:24)
[2018-08-12] MEDS ORDERED: NIFEdipine 10 MG Capsule PO ONE (16:30)
[2018-08-12] MEDS: Senna/Docusate Sodium 8.6/50 MG Tablet PO SCH (19:44)
[2018-08-12] MEDS ORDERED: Zolpidem Tartrate 5 MG Tablet PO PRN (21:00)
[2018-08-13] MEDS: Senna/Docusate Sodium 8.6/50 MG Tablet PO SCH ×3 (09:00→23:09)
[2018-08-13] MEDS: Prenatal Vit/Ca/Iron/Folic Acid Tablet PO SCH (09:00)
--- NOTE | 2018-08-13 09:38 | P.PNOB ---
Subjective Interval history: day #1. Decreased lochia. Denies dysuria. No breast pain. Appetite good. No nausea or vomiting. Ambulating well. Denies calf pain or shortness of breath. Otherwise, she is doing well this morning and has no other complaints. Objective Vital Signs/I&O: Vital Signs 08/12/18 11:06 08/12/18 11:31 08/12/18 12:01 Temperature 98.5 F Pulse Rate 71 58 L 94 H Respiratory Rate Blood Pressure 137/58 L 135/70 141/72 H 08/12/18 12:31 08/12/18 12:44 08/12/18 13:01 Temperature Pulse Rate 64 48 L Respiratory Rate 20 Blood Pressure 137/75 145/72 H 08/12/18 13:33 08/12/18 13:56 08/12/18 14:00 Temperature Pulse Rate 97 H 87 Respiratory Rate 20 21 Blood Pressure 129/63 113/84 08/12/18 15:01 08/12/18 15:31 08/12/18 15:49 Temperature Pulse Rate 60 98 H Respiratory Rate 18 Blood Pressure 147/64 H 167/99 H 08/12/18 15:53 08/12/18 16:01 08/12/18 16:16 Temperature Pulse Rate 49 L 88 47 L Respiratory Rate Blood Pressure 173/86 H 168/88 H 157/99 H 08/12/18 16:31 08/12/18 17:08 08/12/18 17:45 Temperature 99.0 F Pulse Rate 46 L 49 L 51 L Respiratory Rate 20 Blood Pressure 152/82 H 112/48 L 144/88 H 08/12/18 20:00 Temperature 98.8 F Pulse Rate 100 H Respiratory Rate 20 Blood Pressure 116/63 Intake & Output 08/12/18 08/13/18 08/13/18 18:59 06:59 18:59 Intake Total 1000 / 1000 Balance 1000 / 1000 Intake: IV 1000 / 1000 LR 1000 mL Inj 1,000 ML @ 125 1000 / 1000 mls/hr IV.CONT .Q8H [facility] Rx#: [id number] Result Diagrams: 08/12/18 04:30 08/12/18 04:30 Objective Remarks: GENERAL: Well-nourished, well-developed patient. CARDIOVASCULAR: Regular rate and rhythm without murmurs, gallops, or rubs. RESPIRATORY: Breath sounds equal bilaterally. No accessory muscle use. ABDOMEN/GI: Abdomen soft, non-tender. Fundus: Firm, non-tender at umbilicus. GENITOURINARY: Light to moderate bleeding. EXTREMITIES: No cyanosis or edema, non-tender, without signs of DVT. Medications and IVs: Active Medications Acetaminophen (Tylenol) 650 mg PO Q4H PRN PRN Reason: PAIN SCALE 1 TO 2 Al Hydroxide/Mg Hydroxide (Milk Of Magnesia Liq) 30 ml PO Q12H PRN PRN Reason: Mild Constipation Benzocaine (Americaine 20% Top [place]) 1 spray TOPICAL Q4H PRN PRN Reason: For Perineum Discomfort Bisacodyl (Dulcolax Supp) 10 mg RECTAL DAILY PRN PRN Reason: SEVERE CONSITIPATION Citric Acid/Sodium Citrate (Sodium Citrate/Citric Acid Liq) 30 ml PO BUDDER [facility] Stop: 08/16/18 04:29 Fentanyl Citrate (Fentanyl Inj) 50 mcg IV.PUSH Q1H PRN PRN Reason: Pain Scale 3 - 5 Fentanyl Citrate (Fentanyl Inj) 100 mcg IV.PUSH Q1H PRN PRN Reason: PAIN SCALE 6 TO 10 Lactated Ringer's (Lr 1000 Ml Inj) 1,000 mls @ 3,000 mls/hr IV.SIG UNSCH PRN PRN Reason: compromise or epidural Lactated Ringer's (Lr 1000 Ml Inj) 1,000 mls @ 125 mls/hr IV.CONT .Q8H [facility] Last Admin: 08/12/18 12:10 Dose: 125 mls/hr Sodium Chloride (Ns Inj) 500 mls @ 1,000 mls/hr IV.SIG UNSCH PRN PRN Reason: SEE LABEL COMMENTS Sodium Chloride (Ns Inj) 1,000 mls @ 100 mls/hr IV.CONT .Q10H PRN PRN Reason: SEE LABEL COMMENTS Oxytocin (Pitocin 30 Units/Ns 500 Ml Premix) 30 units in 500 mls @ 2 mls/hr IV.SIG TITRATE PRN; Protocol PRN Reason: For induction of labor Last Admin: 08/12/18 11:05 Dose: 2 milliunit/min, 2 mls/hr Oxytocin (Pitocin 30 Units/Ns 500 Ml Premix) 30 units in 500 mls @ 100 mls/hr IV.CONT UNSCH PRN PRN Reason: Heavy bleeding Last Admin: 08/12/18 16:01 Dose: 100 mls/hr Ibuprofen (Motrin) 800 mg PO Q8H PRN PRN Reason: For Cramping Last Admin: 08/13/18 04:40 Dose: 800 mg Lactulose (Lactulose Liq) 30 ml PO DAILY PRN PRN Reason: SEVERE CONSITIPATION Lidocaine HCl (Xylocaine 1% Inj) 0.1 ml I-DERMAL PRN PRN PRN Reason: For IV start Stop: 08/15/18 04:22 Lidocaine HCl (Xylocaine 1% Inj) 10 ml INFILTRATN PRN PRN PRN Reason: For episiotomy repair Stop: 08/14/18 04:22 Mineral Oil (Muri-Lube Oil) 10 ml TOPICAL PRN PRN PRN Reason: PRN perineal massage Naloxone HCl (Narcan Inj) 0.1 mg IV.PUSH Q2M PRN PRN Reason: for opiate reversal Nifedipine (Procardia) 20 mg PO UNSCH X1 PRN PRN Reason: BP STILL ELEVATED Ondansetron HCl (Zofran Inj) 4 mg IV.PUSH Q6H PRN PRN Reason: NAUSEA OR VOMITING Ondansetron HCl (Zofran Odt) 4 mg PO Q6H PRN PRN Reason: NAUSEA OR VOMITING Oxycodone/Acetaminophen (Percocet 5/325 Mg) 1 tab PO Q4H PRN PRN Reason: PAIN SCALE 3 TO 5 Oxycodone/Acetaminophen (Percocet 5/325 Mg) 2 tab PO Q4H PRN PRN Reason: PAIN SCALE 6 TO 10 Last Admin: 08/13/18 04:41 Dose: 2 tab Vit/Calcium/Iron/Folic Ac (Stuartnatal Plus 3) 1 tab PO DAILY [facility] Senna/Docusate Sodium (Ada-Colace) 1 tab PO BID [facility] Last Admin: 08/12/18 19:44 Dose: 1 tab Sennosides (Senokot) 17.2 mg PO Q12H PRN PRN Reason: Moderate Constipation Sodium Chloride (Ns Flush) 2 ml IV.FLUSH BID [facility] Sodium Chloride (Ns Flush) 2 ml IV.FLUSH PRN PRN PRN Reason: FLUSH AFTER USING IV ACCESS Witch Annette/Glycerin (Tucks Pads) 1 applicatio RECTAL QID PRN PRN Reason: HEMORRHOIDS Zolpidem Tartrate (Ambien) 5 mg PO HS PRN PRN Reason: SLEEP Assessment and Plan - Plan 38y/o female who is PPD#1 s/p vaginal delivery. Mildly elevated blood pressures overnight. -Continue routine care. -Motrin PRN pain. -Encouraged OOB. Advised pelvic rest for 6 wks. -D/c likely today or tomorrow wdw Dr. Jo, Dr. Ortiz
[2018-08-14] MEDS ORDERED: Labetalol HCl Inj 100 MG/20 ML Vial IV.PUSH STA (06:45)
--- NOTE | 2018-08-14 06:46 | P.OBGPN ---
received phone call from RN-patient complaining of headache-at that time blood pressure was taken 160/90 x2. History of chronic hypertension. Labetalol 20 mg IVP ordered stat-we will reassess BP and patient status.
[2018-08-14] MEDS ORDERED: Labetalol HCl Inj 20 MG/4 ML Vial IV.PUSH ONE (07:15)
--- NOTE | 2018-08-14 08:32 | P.PNOB ---
Subjective Post day: 2 Interval history: Patient is a 38-year-old G 6 P 5 delivered at 39 weeks and 1 days. Patient is day 2 after spontaneous vaginal delivery. Patient's pain is well- controlled. Patient reports eating and drinking without any nausea or vomiting. Patient reports minimal bleeding. Patient has passed gas but no bowel movements. Patient is walking without lower extremity pain or shortness of breath. She endorses some shoulder pain and has a headache. Her blood pressure has been elevated this morning. She has had high blood pressure diagnosed in the first trimester of her and states she has been taking labetalol at home. Patient reports desire for contraception and breast-feeding. Objective Vital Signs/I&O: Vital Signs 08/13/18 20:00 08/14/18 06:35 08/14/18 07:55 Temperature 98.1 F Pulse Rate 70 84 Respiratory Rate 18 Blood Pressure 153/92 H 161/100 H 143/86 H 08/14/18 08:23 Temperature 98.0 F Pulse Rate 64 Respiratory Rate 18 Blood Pressure 146/88 H Result Diagrams: 08/12/18 04:30 08/12/18 04:30 Objective Remarks: GENERAL: Well-nourished, well-developed patient. CARDIOVASCULAR: Regular rate and rhythm without murmurs, gallops, or rubs. RESPIRATORY: Breath sounds equal bilaterally. No accessory muscle use. ABDOMEN/GI: Abdomen soft, non-tender. Fundus: Firm, non-tender at umbilicus. GENITOURINARY: Light to moderate bleeding. EXTREMITIES: No cyanosis or edema, non-tender, without signs of DVT. Medications and IVs: Active Medications Acetaminophen (Tylenol) 650 mg PO Q4H PRN PRN Reason: PAIN SCALE 1 TO 2 Al Hydroxide/Mg Hydroxide (Milk Of Magnesia Liq) 30 ml PO Q12H PRN PRN Reason: Mild Constipation Benzocaine (Americaine 20% Top [place]) 1 spray TOPICAL Q4H PRN PRN Reason: For Perineum Discomfort Bisacodyl (Dulcolax Supp) 10 mg RECTAL DAILY PRN PRN Reason: SEVERE CONSITIPATION Citric Acid/Sodium Citrate (Sodium Citrate/Citric Acid Liq) 30 ml PO [employer] [facility] Stop: 08/16/18 04:29 Fentanyl Citrate (Fentanyl Inj) 50 mcg IV.PUSH Q1H PRN PRN Reason: Pain Scale 3 - 5 Fentanyl Citrate (Fentanyl Inj) 100 mcg IV.PUSH Q1H PRN PRN Reason: PAIN SCALE 6 TO 10 Lactated Ringer's (Lr 1000 Ml Inj) 1,000 mls @ 3,000 mls/hr IV.SIG UNSCH PRN PRN Reason: compromise or epidural Lactated Ringer's (Lr 1000 Ml Inj) 1,000 mls @ 125 mls/hr IV.CONT .Q8H [facility] Last Admin: 08/12/18 12:10 Dose: 125 mls/hr Sodium Chloride (Ns Inj) 500 mls @ 1,000 mls/hr IV.SIG UNSCH PRN PRN Reason: SEE LABEL COMMENTS Sodium Chloride (Ns Inj) 1,000 mls @ 100 mls/hr IV.CONT .Q10H PRN PRN Reason: SEE LABEL COMMENTS Oxytocin (Pitocin 30 Units/Ns 500 Ml Premix) 30 units in 500 mls @ 2 mls/hr IV.SIG TITRATE PRN; Protocol PRN Reason: For induction of labor Last Admin: 08/12/18 11:05 Dose: 2 milliunit/min, 2 mls/hr Oxytocin (Pitocin 30 Units/Ns 500 Ml Premix) 30 units in 500 mls @ 100 mls/hr IV.CONT UNSCH PRN PRN Reason: Heavy bleeding Last Admin: 08/12/18 16:01 Dose: 100 mls/hr Ibuprofen (Motrin) 800 mg PO Q8H PRN PRN Reason: For Cramping Last Admin: 08/14/18 07:16 Dose: 800 mg Lactulose (Lactulose Liq) 30 ml PO DAILY PRN PRN Reason: SEVERE CONSITIPATION Lidocaine HCl (Xylocaine 1% Inj) 0.1 ml I-DERMAL PRN PRN PRN Reason: For IV start Stop: 08/15/18 04:22 Mineral Oil (Muri-Lube Oil) 10 ml TOPICAL PRN PRN PRN Reason: PRN perineal massage Naloxone HCl (Narcan Inj) 0.1 mg IV.PUSH Q2M PRN PRN Reason: for opiate reversal Nifedipine (Procardia) 20 mg PO UNSCH X1 PRN PRN Reason: BP STILL ELEVATED Ondansetron HCl (Zofran Inj) 4 mg IV.PUSH Q6H PRN PRN Reason: NAUSEA OR VOMITING Ondansetron HCl (Zofran Odt) 4 mg PO Q6H PRN PRN Reason: NAUSEA OR VOMITING Oxycodone/Acetaminophen (Percocet 5/325 Mg) 1 tab PO Q4H PRN PRN Reason: PAIN SCALE 3 TO 5 Oxycodone/Acetaminophen (Percocet 5/325 Mg) 2 tab PO Q4H PRN PRN Reason: PAIN SCALE 6 TO 10 Last Admin: 08/13/18 21:00 Dose: 2 tab Vit/Calcium/Iron/Folic Ac (Stuartnatal Plus 3) 1 tab PO DAILY [facility] Last Admin: 08/13/18 09:00 Dose: 1 tab Senna/Docusate Sodium (Ada-Colace) 1 tab PO BID [facility] Last Admin: 08/13/18 23:09 Dose: Not Given Sennosides (Senokot) 17.2 mg PO Q12H PRN PRN Reason: Moderate Constipation Sodium Chloride (Ns Flush) 2 ml IV.FLUSH BID [facility] Last Admin: 08/13/18 23:08 Dose: 2 ml Sodium Chloride (Ns Flush) 2 ml IV.FLUSH PRN PRN PRN Reason: FLUSH AFTER USING IV ACCESS Witch Annette/Glycerin (Tucks Pads) 1 applicatio RECTAL QID PRN PRN Reason: HEMORRHOIDS Zolpidem Tartrate (Ambien) 5 mg PO HS PRN PRN Reason: SLEEP Assessment and Plan - Diagnosis (1) Vaginal bleeding Code(s): N93.9 - Abnormal uterine and vaginal bleeding, unspecified Status: Acute - Plan 38y/o PPD#2 s/p vaginal delivery. Blood pressure 161/100. Labetalol 20 IV given. Patient with history of high blood pressures during first trimester . Will continue to monitor blood pressures. Patient states she was on labetalol at home. Unsure dosing. -KEBEDE and pain in shoulder: EKG and troponin -Continue routine care. -Motrin PRN pain. -Encouraged OOB. Advised pelvic rest for 6 wks. -D/c today or tomorrow depending on cardiac work-up and blood pressure monitoring. Patient discussed with Dr. Pena.
[2018-08-14] MEDS: Prenatal Vit/Ca/Iron/Folic Acid Tablet PO SCH (10:37)
[2018-08-14] MEDS: Senna/Docusate Sodium 8.6/50 MG Tablet PO SCH ×2 (10:37→21:21)
[2018-08-14] MEDS ORDERED: Labetalol 100 MG Tablet PO SCH ×2 (11:00→20:45)
[2018-08-14] MEDS ORDERED: Influenza (Quadrivalent) Vaccine 0.5 ML Syringe IM ONE (11:15)
--- NOTE | 2018-08-14 12:35 | ECG ---
Date Performed: 08/14/2018 Time Performed: 08:36:10 PTAGE: 38 years EKG: Sinus rhythm WITH FREQUENT VENTRICULAR PREMATURE COMPLEXES Since the previous tracing, no significant change note d ABNORMAL RHYTHM ECG PREVIOUS TRACING : 11/01/2016 18.21 DOCTOR: Bryce Schreiber Interpretating Date/Time 08/14/2018 12:33:48
[2018-08-14] MEDS ORDERED: Labetalol 100 MG Tablet PO ONE (20:45)
[2018-08-14 21:30] VITALS: RESP 18
--- NOTE | 2018-08-15 08:19 | P.PNOB ---
Subjective Post day: 3 Interval history: Patient is a 38-year-old G 6 P 5 delivered at 39 weeks and 1 days. Patient is day 3 after spontaneous vaginal delivery. Patient's pain is well- controlled. Patient reports eating and drinking without any nausea or vomiting. Patient reports minimal bleeding. Patient has passed gas but no bowel movements. Patient is walking without lower extremity pain or shortness of breath. Her blood pressure has been elevated this morning. She had labetalol 200 mg last night. BP Objective Vital Signs/I&O: Vital Signs 08/14/18 08:23 08/14/18 10:00 08/14/18 11:45 Temperature 98.0 F Pulse Rate 64 59 L 81 Respiratory Rate 18 59 H Blood Pressure 146/88 H 141/85 H 142/94 H 08/14/18 19:45 08/14/18 20:00 08/14/18 20:10 Temperature 98.3 F Pulse Rate 96 H Respiratory Rate 18 Blood Pressure 164/98 H 163/107 H 08/14/18 23:48 08/15/18 04:00 Temperature 98.7 F 98.5 F Pulse Rate 72 88 Respiratory Rate 18 18 Blood Pressure 157/86 H 151/92 H Result Diagrams: 08/12/18 04:30 08/12/18 04:30 Objective Remarks: GENERAL: Well-nourished, well-developed patient. CARDIOVASCULAR: Regular rate and rhythm without murmurs, gallops, or rubs. RESPIRATORY: Breath sounds equal bilaterally. No accessory muscle use. ABDOMEN/GI: Abdomen soft, non-tender. Fundus: Firm, non-tender at umbilicus. GENITOURINARY: Light to moderate bleeding. EXTREMITIES: No cyanosis or edema, non-tender, without signs of DVT. Medications and IVs: Active Medications Acetaminophen (Tylenol) 650 mg PO Q4H PRN PRN Reason: PAIN SCALE 1 TO 2 Last Admin: 08/14/18 20:24 Dose: 650 mg Al Hydroxide/Mg Hydroxide (Milk Of Magnesia Liq) 30 ml PO Q12H PRN PRN Reason: Mild Constipation Benzocaine (Americaine 20% Top [place]) 1 spray TOPICAL Q4H PRN PRN Reason: For Perineum Discomfort Bisacodyl (Dulcolax Supp) 10 mg RECTAL DAILY PRN PRN Reason: SEVERE CONSITIPATION Citric Acid/Sodium Citrate (Sodium Citrate/Citric Acid Liq) 30 ml PO [employer] [facility] Stop: 08/16/18 04:29 Fentanyl Citrate (Fentanyl Inj) 50 mcg IV.PUSH Q1H PRN PRN Reason: Pain Scale 3 - 5 Fentanyl Citrate (Fentanyl Inj) 100 mcg IV.PUSH Q1H PRN PRN Reason: PAIN SCALE 6 TO 10 Lactated Ringer's (Lr 1000 Ml Inj) 1,000 mls @ 3,000 mls/hr IV.SIG UNSCH PRN PRN Reason: compromise or epidural Lactated Ringer's (Lr 1000 Ml Inj) 1,000 mls @ 125 mls/hr IV.CONT .Q8H [facility] Last Admin: 08/14/18 10:19 Dose: Not Given Sodium Chloride (Ns Inj) 500 mls @ 1,000 mls/hr IV.SIG UNSCH PRN PRN Reason: SEE LABEL COMMENTS Sodium Chloride (Ns Inj) 1,000 mls @ 100 mls/hr IV.CONT .Q10H PRN PRN Reason: SEE LABEL COMMENTS Oxytocin (Pitocin 30 Units/Ns 500 Ml Premix) 30 units in 500 mls @ 2 mls/hr IV.SIG TITRATE PRN; Protocol PRN Reason: For induction of labor Last Admin: 08/12/18 11:05 Dose: 2 milliunit/min, 2 mls/hr Oxytocin (Pitocin 30 Units/Ns 500 Ml Premix) 30 units in 500 mls @ 100 mls/hr IV.CONT UNSCH PRN PRN Reason: Heavy bleeding Last Admin: 08/12/18 16:01 Dose: 100 mls/hr Ibuprofen (Motrin) 800 mg PO Q8H PRN PRN Reason: For Cramping Last Admin: 08/14/18 20:25 Dose: 800 mg Labetalol HCl (Trandate) 200 mg PO BID [facility] Lactulose (Lactulose Liq) 30 ml PO DAILY PRN PRN Reason: SEVERE CONSITIPATION Mineral Oil (Muri-Lube Oil) 10 ml TOPICAL PRN PRN PRN Reason: PRN perineal massage Naloxone HCl (Narcan Inj) 0.1 mg IV.PUSH Q2M PRN PRN Reason: for opiate reversal Nifedipine (Procardia) 20 mg PO UNSCH X1 PRN PRN Reason: BP STILL ELEVATED Ondansetron HCl (Zofran Inj) 4 mg IV.PUSH Q6H PRN PRN Reason: NAUSEA OR VOMITING Ondansetron HCl (Zofran Odt) 4 mg PO Q6H PRN PRN Reason: NAUSEA OR VOMITING Oxycodone/Acetaminophen (Percocet 5/325 Mg) 1 tab PO Q4H PRN PRN Reason: PAIN SCALE 3 TO 5 Oxycodone/Acetaminophen (Percocet 5/325 Mg) 2 tab PO Q4H PRN PRN Reason: PAIN SCALE 6 TO 10 Last Admin: 08/13/18 21:00 Dose: 2 tab Vit/Calcium/Iron/Folic Ac (Stuartnatal Plus 3) 1 tab PO DAILY [facility] Last Admin: 08/14/18 10:37 Dose: 1 tab Senna/Docusate Sodium (Ada-Colace) 1 tab PO BID [facility] Last Admin: 08/14/18 21:21 Dose: Not Given Sennosides (Senokot) 17.2 mg PO Q12H PRN PRN Reason: Moderate Constipation Sodium Chloride (Ns Flush) 2 ml IV.FLUSH BID [facility] Last Admin: 08/14/18 21:21 Dose: 2 ml Sodium Chloride (Ns Flush) 2 ml IV.FLUSH PRN PRN PRN Reason: FLUSH AFTER USING IV ACCESS Witch Annette/Glycerin (Tucks Pads) 1 applicatio RECTAL QID PRN PRN Reason: HEMORRHOIDS Zolpidem Tartrate (Ambien) 5 mg PO HS PRN PRN Reason: SLEEP Assessment and Plan - Diagnosis (1) Elevated blood pressure reading without diagnosis of hypertension Code(s): R03.0 - Elevated blood-pressure reading, without diagnosis of hypertension Status: Acute (2) Vaginal delivery Code(s): O80 - Encounter for full-term uncomplicated delivery Status: Acute - Plan 38y/o PPD#3 s/p vaginal delivery. Patient with history of high blood pressures during first trimester . -Continue routine care. -Motrin PRN pain. -Encouraged OOB. Advised pelvic rest for 6 wks. - Labetalol 200 BID for elevated blood pressure associated w/. BP this AM 159/86 (before AM dose of labetalol). Will recheck this AM, consider increasing BP med dose. -D/c today Patient discussed with Dr. Morse - Attending Attestation The exam, history, and the medical decision-making described in the above note were completed with the assistance of the resident physician. I reviewed and agree with the findings presented. I attest that I had a [id number] encounter with the patient on the same day, and personally performed and documented my assessment and findings in the medical record.
[2018-08-15 08:41] VITALS: BP 154/99; PULSE 82; TEMP 98
[2018-08-15] MEDS ORDERED: Labetalol 200 MG Tablet PO SCH (09:00)
[2018-08-15] MEDS: Senna/Docusate Sodium 8.6/50 MG Tablet PO SCH (09:14)
[2018-08-15] MEDS: Prenatal Vit/Ca/Iron/Folic Acid Tablet PO SCH (09:14)
== END 2018-08-15 10:29 | disposition home or self-care (01) | DRG 807 ==
LOC: HOBED 03:12 → H2E 03:50 → H1EA 17:33
PROVIDERS: ADMIT Obstetrics & Gynecology; ATTEND Obstetrics & Gynecology
CPT/HCPCS: 59025; 80053; 81001; 84484; 85025; 86900; 86901; 87086; 90658; 90686; 93005; 99285; J2590; J7120; Q2038